=== PATIENT | female | born 1960 | race Caucasian/White ===

== ENCOUNTER → 2025-01-14 | Outpatient (CLI) | payer MEDICARE, MEDICAID, SELFPAY | END | disposition home or self-care (01) | PROVIDERS: PCP Physician Assistant; Referring Provider Physician Assistant; Visit Provider Physician Assistant | DX: Z53.8 Procedure and treatment not carried out for other reasons (principal) ==

== ENCOUNTER 2025-08-22 07:13 | Inpatient (IN) | payer MEDICARE, MEDICAID, SELFPAY ==
[2025-08-22] VITALS (16 sets, daily range): BP systolic 91–128; BP diastolic 56–88; PULSE 93–136; RESP 15–96; TEMP 36.6–39.3; O2SAT 90–100; BMI 25.7
--- NOTE | 2025-08-22 07:19 | EKG_ITS ---
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
--- NOTE | 2025-08-22 07:22 | XR_ITS ---
EXAMINATION: AP chest single view TECHNIQUE: AP portable upright chest single view Date and time: August 22, 2025, 0805 hours INDICATIONS: Chest pain sepsis protocol today. FINDINGS: Mild prominence left ventricle No lobar pneumonia Prominent osteopenia No pulmonary edema IMPRESSION: No lobar pneumonia
--- NOTE | 2025-08-22 07:31 | PD.EDABDPN ---
ED Abdominal Pain RME/HPI General Chief Complaint: Abdominal Pain Stated complaint: ABD PAIN, FEVER CHILLS Time seen by provider: 08/22/25 07:18 Arrival date/time: 08/22/25 07:13 Source: patient and EMS Mode of arrival: ambulatory Limitations: no limitations RME / HPI Severity scale (1-10): 5 Quality: fullness Radiation: none Migration to: no migration Relieving factors: nothing RME / HPI narrative: DR. QUARLES MAIN ED EVALUATION: 65-year-old female presents with a 4 day history of abdominal pain, chills, fever, sweating, nausea, and vomiting. She reports no diarrhea. Abdominal pain is epigastric in location. She has a history of UTI and ankylosing spondylitis and receives monthly immunosuppression treatment for her ankylosing spondylitis. She also reports burning with urination and a mild cough. No shortness of breath and no chest pain. Related Data Previous Rx's ?Medication ?Instructions ?Recorded Acetaminophen ER * (TYLENOL ER *) 650 mg PO Q8HR PRN PAIN ##30 08/05/17 ibuprofen 600 mg tablet 600 mg PO Q6HR PRN PAIN #30 tabs 08/05/17 Allergies Allergy/AdvReac Type Severity Reaction Status Date / Time tetracycline Allergy Mild ITCHY,HIVES Verified 08/22/25 07:28 Review of Systems Review of Systems Systems Reviewed: All systems reviewed, normal except as documented Past Medical History Past Medical History CARDIAC: Positive Hypertension GASTROINTESTINAL: Positive Gastroesophageal Reflux Disease ENDOCRINE: Positive Hyperthyroidism Social History SMOKING STATUS: Former smoker SUBSTANCE USE: does not use Past Medical History Comments PMH COMMENT: Ankylosing spondylitis Hypertension Recurrent UTI ED Exam General Limitations: Present no limitations General appearance: Present alert and in no apparent distress Head Head exam: Present atraumatic, normocephalic and normal inspection Eye Eye exam: Present normal appearance, PERRL and EOMI ENT ENT exam: Present normal exam, normal oropharynx and mucous membranes moist Neck Neck exam: Present normal inspection, full ROM and trachea midline Chest Chest inspection: Present normal inspection and symmetric chest wall rise Respiratory Respiratory exam: Present normal lung sounds bilaterally Cardiovascular Cardiovascular exam: Present regular rate, normal rhythm and normal heart sounds Abdominal Exam Abdominal exam: Present soft and normal bowel sounds Extremities Exam Extremities exam: Present normal inspection and full ROM Back Exam Back exam: Present normal inspection and full ROM Neurological Exam Neurological exam: Present alert, oriented X3 and CN II-XII intact Psychiatric Psychiatric exam: Present normal affect and normal mood Skin Skin exam: Present warm, dry, intact and normal color Course Quality Measures none Orders Category Date Time Status Admit to Inpatient Status Routine Admission 08/22/25 14:32 Active Patient Condition Routine Admission 08/22/25 14:32 Ordered Poultry Debeaker STAT Care 08/22/25 07:19 Active Continuous Pulse Oximetry STAT Care 08/22/25 07:19 Completed EKG (ED ONLY) *Do not use* NOW Care 08/22/25 07:19 Completed In and Out Catheter X1PRN Care 08/22/25 07:19 Completed Insert IV NOW Care 08/22/25 07:19 Active NPO STAT Care 08/22/25 07:19 Active Notify provider NEEDED Care 08/22/25 14:32 Active Strict Intake and Output Routine Care 08/22/25 07:19 Ordered Diet Regular Diet 08/22/[address] abdomen pelvis wo con Stat Exams 08/22/25 13:18 Completed EKG (ED Only) Stat Exams 08/22/25 07:19 Draft XR chest 1V SEPSIS PROTOCOL Stat Exams 08/22/25 07:22 Completed Arterial Blood Gas Stat Lab 08/22/25 07:15 Completed B-Type Natriuretic Peptide Stat Lab 08/22/25 07:23 Completed Blood Culture (Lab) Stat Lab 08/22/25 07:41 Received CBC AM DRAW Lab 08/23/25 05:00 Ordered CBC AM DRAW Lab 08/24/25 05:00 Ordered CBC AM DRAW Lab 08/25/25 05:00 Ordered CBC AM DRAW Lab 08/26/25 05:00 Ordered CBC AM DRAW Lab 08/27/25 05:00 Ordered CBC Stat Lab 08/22/25 09:08 Completed Comprehensive Metabolic Panel AM DRAW Lab 08/23/25 05:00 Ordered Comprehensive Metabolic Panel AM DRAW Lab 08/24/25 05:00 Ordered Comprehensive Metabolic Panel AM DRAW Lab 08/25/25 05:00 Ordered Comprehensive Metabolic Panel AM DRAW Lab 08/26/25 05:00 Ordered Comprehensive Metabolic Panel AM DRAW Lab 08/27/25 05:00 Ordered Comprehensive Metabolic Panel Stat Lab 08/22/25 07:31 Completed LDH (Lactate Dehydrogenase) Stat Lab 08/22/25 07:31 Completed Lactate (Lactic Acid) Stat Lab 08/22/25 09:08 Completed Lactic Acid, 3 HR Stat Lab 08/22/25 12:33 Completed Lipase Stat Lab 08/22/25 07:31 Completed Lipid Panel AM DRAW Lab 08/23/25 05:00 Ordered Magnesium AM DRAW Lab 08/23/25 05:00 Ordered Magnesium Stat Lab 08/22/25 07:31 Completed Partial Thromboplastin Time Stat Lab 08/22/25 07:31 Completed Phosphorous Stat Lab 08/22/25 07:31 Completed Procalcitonin Stat Lab 08/22/25 07:31 Completed Prothrombin Time with INR Stat Lab 08/22/25 07:31 Completed Thyroid Stimulating Hormone AM DRAW Lab 08/23/25 05:00 Ordered Troponin I Stat Lab 08/22/25 07:31 Completed Urinalysis, C/S if Indicated Stat Lab 08/22/25 07:31 Completed Urine Culture Stat Lab 08/22/25 07:31 Received Acetaminophen Lyn [Tylenol Lyn] Med 08/22/25 07:18 Active 1,000 mg PO Q8H PRN Acetaminophen Tab [Tylenol Tab] Med 08/22/25 14:31 Discontinued 650 mg PO Q6H PRN Heparin Inj Med 08/22/25 22:00 Active 5,000 unit SC Q8HR Ondansetron Inj [Zofran Inj] Med 08/22/25 07:18 Active 4 mg IVP Q6HR PRN Sodium Chloride 0.9% 1000 ml [Ns] 1,000 ml Med 08/22/25 10:34 Discontinued IV 999 mls/hr Sodium Chloride 0.9% 1000 ml [Ns] 1,435 ml Med 08/22/25 07:18 Discontinued IV 1,435 mls/hr cefTRIAXone [Rocephin] 1,000 mg Med 08/22/25 07:18 Discontinued SODIUM CHLORIDE 0.9% (Popper) [Ns 0.9% (P)] 50 ml IV X1 Code Status Routine Oth 08/22/25 14:31 Ordered Oxygen Delivery NOW RT 08/22/25 07:19 Active Vital Signs Vital signs: Vital Signs Temperature 102.7 F H 08/22/25 07:20 Pulse Rate 132 H 08/22/25 07:20 Respiratory Rate 19 08/22/25 07:20 Blood Pressure 108/56 L 08/22/25 07:20 Pulse Oximetry (%) 94 L 08/22/25 07:20 Oxygen Delivery Method Room Air 08/22/25 07:20 Abdominal Pain [facility] Narrative MDM Narrative:: I, Imelda Mcleod, am scribing for and in the presence of Dr. Quarles. 65-year-old female with fever, chills, nausea, vomiting, abdominal pain, and urinary burning with history of immunosuppression. Exam normal. Impression is fever, sepsis, and UTI. Patient was given IV fluid Septic workup was done IV Rocephin was given Assume to diagnosis a UTI X-ray chest ordered UA was sent out Blood cultures were taken Labs, EKG, and chest X ray were normal. Urinalysis was positive for UTI. 1217: Blood pressure is better. Will admit the patient to the hospitalist services for UTI, sepsis, and dehydration. Patient data External records reviewed:: [facility] previous records Clinical information provided by:: patient Social determinants that could affect healthcare access:: none Patient has the following chronic illnesses:: Hypertension, GERD, and hyperthyroidism. How is presenting disease/condition affected by chronic disease/condition?: uneffected by Evaluation data The following diagnostics were reviewed and interpreted by me:: lab results, radiology exam(s) and EKG tracing(s) (EKG#1: EKG at 0801 hours. Interpreted by me: sinus tachycardia, rate 114, no axis deviation, no ischemia, normal intervals ) Lab and/or radiology exams considered but not ordered:: none Interpretation Summary: See MDM narrative above. RADIOLOGY Procedure(s): XR chest 1V SEPSIS PROTOCOL Accession Number(s): [id number] cc: Kasey Flores MD; Georges Latif MD; NO PRIMARY/FAMILY,PHYSICIAN~ EXAMINATION: AP chest single view TECHNIQUE: AP portable upright chest single view Date and time: August 22, 2025, 0805 hours INDICATIONS: Chest pain sepsis protocol today. FINDINGS: Mild prominence left ventricle No lobar pneumonia Prominent osteopenia No pulmonary edema IMPRESSION: No lobar pneumonia Dictated By: Georges Latif MD Procedure(s): CT abdomen pelvis wo [facility] Accession Number(s): [id number] cc: Kasey Flores MD; Georges Latif MD; Erica Pruitt PA-C~ Examination: CT abdomen and pelvis without contrast. Coronal 3-D reconstructions. Sagittal 2-D reconstructions. Date and time of exam: August 22, 2025, 1530 hours INDICATIONS: Flank pain fever urinary tract infections 1 week CTDI: vol (mGy): 7.46 DLP: (mGycm): 354 Technique: Axial images of the abdomen have been obtained, 3 mm slice thickness Intravenous contrast material has not been administered. Low dose protocols were performed. One or more of the following dose reduction techniques were used; automated exposure control, adjustment of the mA and/or KV according to patient size, use of iterative reconstruction technique. Findings: Trace pericardial thickening Fatty infiltration throughout the liver No extrahepatic biliary tract dilatation Spleen is not enlarged Moderate renal scarring, no hydronephrosis Multiple fluid distended small bowel loops Colonic diverticulosis, no diverticulitis No bladder mass or bladder calculi Prominent osteopenia IMPRESSION: Moderate renal scarring, no hydronephrosis Multiple fluid distended small bowel loops, differential would include enteritis, early small bowel obstruction As clinically warranted, consider Gastrografin small bowel series follow-up Dictated By: Georges Latif MD Medications / Prescriptions Medications or Prescriptions considered but not ordered:: none Medication administrations:: Medication Administration History Acetaminophen (Acetaminophen Lyn 325 Mg/10 Ml Udc) 1,000 mg PO Q8H PRN PRN Reason: Fever > 100.4 Stop: 09/21/25 07:17 Last Admin: 08/22/25 07:46 Dose: 1,000 mg Documented By: LIGIA Hydrocodone Bitart/Acetaminophen (Hydrocodone/Apap 10/325 Tab) 1 tab PO Q8HR PRN PRN Reason: Pain 4-10 Stop: 08/27/25 17:20 Cyclobenzaprine HCl (Cyclobenzaprine 5 Mg Tablet) 5 mg PO TID [facility] Stop: 09/21/25 21:59 Gabapentin (Gabapentin 100 Mg Capsule) 100 mg PO TID [facility] Stop: 09/21/25 21:59 Heparin Sodium (Porcine) (Heparin Sod Inj 5000 Unit/Ml Vial) 5,000 unit SC Q8HR [facility] Stop: 09/05/25 21:59 Ceftriaxone Sodium/Dextrose (Rocephin/D5w 1gm Iv Premix) 1 gm in 50 mls @ 100 mls/hr IV QDAY [facility] Stop: 08/30/25 08:59 Sodium Chloride (Ns) 1,000 mls @ 70 mls/hr IV .[id number] ONE Stop: 08/23/25 07:41 Levothyroxine Sodium (Levothyroxine Sodium 25 Mcg Tablet) 75 mcg PO ACBR [facility] Stop: 09/22/25 05:59 Ondansetron HCl (Ondansetron Inj 2 Mg/Ml Inj 2 Ml) 4 mg IVP Q6HR PRN PRN Reason: NAUSEA OR VOMITING Stop: 09/21/25 07:17 Last Admin: 08/22/25 07:46 Dose: 4 mg Documented By: LIGIA Sennosides (Senna/Docusate Sod 1 Tab Tablet) 1 tab PO QDAY [facility]; Protocol Stop: 09/22/25 08:59 Discontinued Medications Acetaminophen (Acetaminophen 325 Mg Tablet) 650 mg PO Q6H PRN PRN Reason: Fever >100.4 Stop: 09/21/25 14:30 Sodium Chloride (Ns) 1,435 mls @ 1,435 mls/hr 30 ml/kg infuse over 60 min (1435 ml) IV .Q1H ONE Stop: 08/22/25 08:17 Last Infusion: 08/22/25 08:47 Dose: Infused Documented By: Admin: 08/22/25 07:47 Dose: 1,435 mls/hr Documented By: LIGIA Ceftriaxone Sodium 1,000 mg/ (Sodium Chloride) 50 mls @ 100 mls/hr IV X1 ONE Stop: 08/22/25 07:47 Last Infusion: 08/22/25 08:16 Dose: Infused Documented By: Admin: 08/22/25 07:46 Dose: 100 mls/hr Documented By: LIGIA Sodium Chloride (Ns) 1,000 mls @ 999 mls/hr IV .Q1H1M ONE Stop: 08/22/25 11:34 Last Infusion: 08/22/25 11:57 Dose: Infused Documented By: Admin: 08/22/25 10:56 Dose: 999 mls/hr Documented By: LIGIA see above Consultations Consultation(s) initiated? (list below): Yes Consultation #1 (Physician, Specialty, Details): Discussed test HPI, PMHx, lab, radiology results and/or management with resident working with the hospitalist. Will admit for further evaluation and management. Accepts patient for admission. Time: 17:07 Diagnosis Differential diagnosis abdominal pain: other (fever, sepsis, and UTI) Most likely diagnosis given after review of the tests above:: UTI Sepsis Dehydration Admission Indicated Admission indicated?: indicated Admission Request Was there a request for admission?: Yes Admission Attestation Admission request attestation: Discussed case with [] from Hospitalist service regarding admission. Discussed patients ED course, exam findings, labs, and radiology results. The Hospitalist [agrees,declines] to accept the patient for admission. Disposition Plan Disposition Plan: Admit Discharge Plan Plan Patient Disposition: Admit Acute Care w/in Hospital Problem List Clinical Impression: Acute UTI, Acute dehydration, UTI (urinary tract infection), Sepsis, Dehydration
[2025-08-22] MEDS: cefTRIAXone 1,000 MG in SODIUM CHLORIDE 0.9% (Popper) 50 ML 100 MG IV (07:46)
[2025-08-22] MEDS: ACETAMINOPHEN SOL 325 MG/10 ML UDC 1000 MG PO ×2 (07:46→20:05)
[2025-08-22] MEDS: ONDANSETRON INJ 2 MG/ML INJ 2 ML 4 MG IVP (07:46)
[2025-08-22 07:58] LABS: Collection Type, Urine Clean Catch
[2025-08-22 08:38] LABS: Alanine Aminotransferase < 7 U/L (10-49); Albumin, Serum 4.6 gm/dL (3.4-4.8); Albumin/Globulin Ratio 1.4 (1.2-2.2); Alkaline Phosphatase 111 U/L (46-116); Anion Gap 14 (7-16); Aspartate Amino Transferase 17 U/L (0-34); BUN/Creatinine Ratio 9 Ratio (12-20); Bilirubin,Total 0.9 mg/dL (0.3-1.2); Blood Urea Nitrogen 11 mg/dL (9-23); Calcium 9.3 mg/dL (8.3-10.6); Calcium (Corrected) 9.3 mg/dL (8.5-10.1); Carbon Dioxide 21.4 mMol/L (20.0-31.0); Chloride 102 mMol/L (98-107); Creatinine (Component) 1.2 mg/dL (0.6-1.3); Estimated Creatinine Clearance 37.3 mL/min (>60); Globulin 3.2 gm/dL (2.3-3.5); Glucose 109 mg/dL (74-106); LDH (Lactate Dehydrogenase) 192 U/L (120-246); Lipase 27 U/L (12-53); Magnesium 1.7 mg/dL (1.6-2.6); Osmolality,Calculated 274 (275-295); Phosphorous 2.7 mg/dL (2.4-5.1); Potassium 3.6 mMol/L (3.4-5.1); Procalcitonin 1.19 ng/ml (0.0-0.49); Sodium 137 mMol/L (136-145); Total Protein 7.8 gm/dL (5.7-8.2); Troponin I 0.041 ng/mL (0.0-0.045); eGFR 50 See Note
[2025-08-22 08:39] LABS: Bacteria,Urine 1+; Bilirubin,Urine Negative (Negative); Blood,Urine 3+ (Negative); Clarity,Urine Turbid (Clear/Hazy); Color,Urine Yellow (Lt Yel-Yel); Glucose, Urine Negative (Negative); Hyaline Casts,Urine < 1 /hpf (0-1); Ketones,Urine Negative (Negative); Leukocyte Esterase,Urine Positive (Negative); Nitrite,Urine Negative (Negative); PH,Urine 5.5 (5.0-7.0); Protein,Urine 1+ (Neg - Trace); RBC,Urine 468 /hpf (0-3); Specific Gravity,Urine 1.012 (1.001-1.035); Squamous Epithelial Cell,Urine 1 /hpf (0-5); Urobilinogen,Urine Negative mg/dL (0.0-1.0); WBC,Urine 216 /hpf (0-5)
[2025-08-22 08:41] LABS: Base Excess -1 (-3-3); HCO3 22 mEq/L (20-26); Inspired Oxygen, FIO2 21 %; O2 Saturation 99 % (91-98); PCO2 31 mmHg (32.0-48.0); PO2 111 mmHg (83-108); pH, Arterial 7.47 (7.35-7.45)
[2025-08-22 08:42] LABS: Allen Test Performed/OK; Puncture Site Right Radial
[2025-08-22 08:42] LABS: B-Type Natriuretic Peptide 49 pg/mL (0-100)
[2025-08-22 08:42] LABS: Culture Indicated,Urine Yes
[2025-08-22 08:55] LABS: INR 1.1 (0.9-1.3); Partial Thromboplastin Time 27.7 Seconds (22.0-36.0); Prothrombin Time 11.4 Seconds (9.0-12.2)
[2025-08-22 09:24] LABS: Lactate (Lactic Acid) 2.8 mMol/L (0.4-2.0)
[2025-08-22 09:36] LABS: Basophils # (Auto) 0.1 Thou/mm3 (0.0-0.2); Basophils % (Auto) 0 % (0-2.5); Eosinophils # (Auto) 0.1 Thou/mm3 (0.0-0.5); Eosinophils % (Auto) 1 % (0-10); Hematocrit 36.7 % (36.0-46.0); Hemoglobin 12.0 g/dL (12.0-16.0); Immature Granulocytes Auto 0.08 Thou/mm3 (0.00-0.00); Lymphocytes # (Auto) 0.8 Thou/mm3 (1.0-4.8); Lymphocytes % (Auto) 7 % (10-50); Mean Corpuscular HGB Conc 32.7 g/dl (31.0-37.0); Mean Corpuscular Hemoglobin 27.6 pg (25.0-35.0); Mean Corpuscular Volume 84 fL (80-100); Monocytes # (Auto) 0.5 Thou/mm3 (0.0-0.8); Monocytes % (Auto) 4 % (0-12); Neutrophils # (Auto) 11.4 Thou/mm3 (1.8-7.7); Neutrophils % (Auto) 88 % (37-80); Nucleated Red Blood Cell # 0.00 Thou/mm3 (0.00-0.00); Nucleated Red Blood Cell % 0 /100 WBC (0); Platelet Count 214 Thou/mm3 (140-440); RDW Standard Deviation 42.4 fL (36.4-46.3); Red Blood Count 4.35 Miln/mm3 (4.00-5.20); White Blood Count 13.0 Thou/mm3 (3.6-11.0)
[2025-08-22] MEDS: SODIUM CHLORIDE 0.9% 1000 ML 1,000 ML 999 ML IV (10:56)
[2025-08-22 12:19] LABS: Reflex Lactate? Y
[2025-08-22 12:39] LABS: Lactic Acid, 3 HR 1.6 mMol/L (0.4-2.0)
--- NOTE | 2025-08-22 13:18 | XR_ITS ---
Examination: CT abdomen and pelvis without contrast. Coronal 3-D reconstructions. Sagittal 2-D reconstructions. Date and time of exam: August 22, 2025, 1530 hours INDICATIONS: Flank pain fever urinary tract infections 1 week CTDI: vol (mGy): 7.46 DLP: (mGycm): 354 Technique: Axial images of the abdomen have been obtained, 3 mm slice thickness Intravenous contrast material has not been administered. Low dose protocols were performed. One or more of the following dose reduction techniques were used; automated exposure control, adjustment of the mA and/or KV according to patient size, use of iterative reconstruction technique. Findings: Trace pericardial thickening Fatty infiltration throughout the liver No extrahepatic biliary tract dilatation Spleen is not enlarged Moderate renal scarring, no hydronephrosis Multiple fluid distended small bowel loops Colonic diverticulosis, no diverticulitis No bladder mass or bladder calculi Prominent osteopenia IMPRESSION: Moderate renal scarring, no hydronephrosis Multiple fluid distended small bowel loops, differential would include enteritis, early small bowel obstruction As clinically warranted, consider Gastrografin small bowel series follow-up
--- NOTE | 2025-08-22 14:40 | ESHP_ITS ---
<Statement entered by Jono Pierre MD - 08/23/25 14:51> Ms. Parker is a 65-year-old female with past medical history of psoriatic arthritis, ankylosing spondylitis, hypertension, hyperlipidemia, and hypothyroidism presented to the ED complaining of fever, chills and lower abdominal pain with dysuria. Pt also complains of Nausea and vomiting. UA is positive for UTI, pt meets sepsis criteria, she is tachycardic, tachypneic, leukocytosis, lactic acidosis with end organ damage of CARMEN. Pt is admitted for sepsis 2/2 UTI, UC and BC pending. Will continue IV antibiotics with rocephin. Patient was seen and examined by me personally. I have directly supervised and reviewed documentation by the team resident and agree with its findings. ------- Plan of care was discussed with the attending, Dr. Marisel Pierre, PGY-2 Documentation for date of: 08/22/25 HPI History of Present Illness History of present illness: HPI: 65-year-old female with past medical history of psoriatic arthritis, ankylosing spondylitis hypertension, hyperlipidemia, and hypothyroidism who presented to the ED on 08/22/2025 with a 4-day history of dysuria, fever, and chills. Patient describes dysuria and associated incontinence. She also endorsed a fever and an episode of vomiting the day of presentation. She was found to have a UTI on urinalysis as well as a leukocytosis and a temperature of 102.7 on arrival with a lactic acid of 2.8. Patient was admitted for sepsis secondary to UTI. ED Course: * Significant vitals: BP 108/56, pulse 132, temp 102.7 ?F, saturating 94% on room air. * Significant labs: WBC 13. ABG showed pH 7.47, pCO2 31, PaO2 111. Lactic acid was 2.8. * Imaging: Chest x-ray showed no pneumonia. EKG showed sinus tachycardia. CT abdomen pelvis showed moderate renal scarring, no hydronephrosis, multiple fluid distended small bowel loops. * Urinalysis showed 468 RBCs, 216 WBCs 1+ bacteria. * ED Intervention: Patient was given 1 g of acetaminophen for her fever. Patient was given 1 g of ceftriaxone. Patient was also given 2.4 L of IV fluids. History: * Past medical history: As above, patient mentions that distant history of cervical cancer. * Surgical history: Appendectomy 1973, cholecystectomy in 1983 * Social history: [id number] smoking history, quit 27 years ago. Lives with and grandson. * Family history: Sister had brain cancer and bladder cancer. Home medications: * Tremfya twice a year, Wegovy, [place], Flexeril, meclizine, gabapentin, levothyroxine 75 mcg, Linzess, as Meprazole, amlodipine 5, Otezla Allergies: * Tetracyclines Code Status: * DNI, Resuscitation okay Review of Systems Review of Systems Narrative Review of Systems: Review of Systems: * General: Admits to fevers, chills. * HEENT: Denies headache, congestion, or sore throat. * Cardiac: Denies chest pain or palpitations. * Pulmonary: Denies shortness of breath or cough. * GI: Admits to vomiting. Denies diarrhea, constipation, melena, or hematochezia. * : 4-day history of dysuria, incontinence, difficulty initiating urination. * MSK: Denies pain in the extremities, joints, or myalgias. * Neuro: Denies weakness, numbness, vision changes, or speech difficulty. Exam Vital Signs Temp Pulse Resp BP Pulse Ox O2 Del Method 97.8 F 94 19 96/66 100 Room Air 08/22/25 13:47 08/22/25 13:47 08/22/25 13:47 08/22/25 13:47 08/22/25 13:47 08/22/25 13:47 Narrative Exam General: Awake and in no acute distress. Conversational and non-toxic appearing. Neurologic: GCS 15. Alert and oriented x3, no gross neurological deficit, and patient able to move all 4 extremities. HEENT: Normocephalic, atraumatic, mucous membranes moist. Pupils reactive to light. Heart: Regular rate and rhythm, normal S1 and S2, no murmurs. Lungs: Clear to auscultation bilaterally with no wheezing or crackles. Abdomen: Distended, diffuse tenderness. No guarding or rebound tenderness. Extremities: No edema. 2+ radial and dorsalis pedis pulses bilaterally. Skin: Warm. Dry. No rash or ecchymoses. Results: Labs 08/23/25 05:39 08/23/25 05:39 Labs: Short CBC 08/22/25 Range/Units 09:08 WBC 13.0 H (3.6-11.0) Thou/mm3 Hgb 12.0 (12.0-16.0) g/dL Hct 36.7 (36.0-46.0) % Plt Count 214 (140-440) Thou/mm3 BMP 08/22/25 07:31 Sodium 137 Potassium 3.6 Chloride 102 Carbon Dioxide 21.4 BUN 11 Creatinine 1.2 Glucose 109 H Calcium 9.3 Cardiac Enzymes 08/22/25 Range/Units 07:31 Troponin I 0.041 (0.0-0.045) ng/mL Liver Function 08/22/25 Range/Units 07:31 Total Bilirubin 0.9 (0.3-1.2) mg/dL AST 17 (0-34) U/L ALT < 7 L (10-49) U/L Alkaline Phosphatase 111 (46-116) U/L Albumin 4.6 (3.4-4.8) gm/dL Urine 08/22/25 Range/Units 07:31 Urine Color Yellow (Lt Yel-Yel) Urine Clarity Turbid A (Clear/Hazy) Urine pH 5.5 (5.0-7.0) Ur Specific [place] 1.012 (1.001-1.035) Urine Protein 1+ A (Neg - Trace) Urine Glucose (UA) Negative (Negative) ABG Interpretation ABG results: 08/22/25 07:15 ABG pH 7.47 H ABG pCO2 31 L ABG pO2 111 H ABG HCO3 22 ABG O2 Saturation 99 H ABG Base Excess -1 Quality Measures Quality Measures none Advance care planning discussed with:: patient Medications Home Medications and Allergies Home Medications ?Medication ?Instructions ?Recorded ?Confirmed ?Type albuterol sulfate 90 mcg/actuation 2 puff inhalation T ID PRN 08/22/25 08/22/25 History aerosol inhaler shortness of breath or wheez ing amlodipine 5 mg tablet 5 mg PO DAILY 08/22/2508/22 History apremilast 30 mg tablet (Otezla) 30 mg PO DAILY 08/22/25 History cyclobenzaprine 5 mg tablet 5 mg PO TID PRN muscle spa sm 08/22/25 08/22/25 History fluticasone propionate 44 2 inh inhalation BID PRN shayla rtness 08/22/25 08/22/25 History mcg/actuation HFA aerosol inhaler of breath or wheezin g guselkumab 100 mg/mL subcutaneous 100 mg subcut .Q4 we eks 08/22/25 08/22/25 History syringe (Tremfya) hydrocodone 10 mg-acetaminophen 1 tab PO TID PRN pain 08/22/25 08/22/25 History 325 mg tablet levothyroxine 75 mcg tablet 75 mcg PO DAILY 08/22/25 1 10/22/24 History lidocaine 5 % topical patch 1 patch topical Q24H PRN p ain 08/22/25 08/22/25 History (scale score 7-10) linaclotide 145 mcg capsule 145 mcg PO DAILY 08/22/25 08/22/25 History (Linzess) meclizine 25 mg tablet 25 mg PO [id number] PRN dizzine ss 08/22/25 08/22/25 History omeprazole 40 mg capsule,delayed 40 mg PO DAILY 08/22/25 History release ondansetron HCl 4 mg tablet 4 mg PO [id number] PRN nausea and 08/22/25 08/22/25 History vomiting semaglutide (weight loss) 1.7 1.7 mg subcut Q7D 08/22/25 History mg/0.75 mL subcutaneous pen injector (Weteodoro) Allergies Allergy/AdvReac Type Severity Reaction Status Date / Time tetracycline Allergy Mild ITCHY,HIVES Verified 08/22/25 07:28 Visit Medications Acetaminophen (Acetaminophen Lyn 325 Mg/10 Ml Udc) 1,000 mg PO Q8H PRN PRN Reason: Fever > 100.4 Stop: 09/21/25 07:17 Last Admin: 08/22/25 07:46 Dose: 1,000 mg Heparin Sodium (Porcine) (Heparin Sod Inj 5000 Unit/Ml Vial) 5,000 unit SC Q8HR ALEJANDRA Stop: 09/05/25 21:59 Ondansetron HCl (Ondansetron Inj 2 Mg/Ml Inj 2 Ml) 4 mg IVP Q6HR PRN PRN Reason: NAUSEA OR VOMITING Stop: 09/21/25 07:17 Last Admin: 08/22/25 07:46 Dose: 4 mg Discontinued Medications Acetaminophen (Acetaminophen 325 Mg Tablet) 650 mg PO Q6H PRN PRN Reason: Fever >100.4 Stop: 09/21/25 14:30 Sodium Chloride (Ns) 1,435 mls @ 1,435 mls/hr 30 ml/kg infuse over 60 min (1435 ml) IV .Q1H ONE Stop: 08/22/25 08:17 Last Infusion: 08/22/25 08:47 Dose: Infused Ceftriaxone Sodium 1,000 mg/ (Sodium Chloride) 50 mls @ 100 mls/hr IV X1 ONE Stop: 08/22/25 07:47 Last Infusion: 08/22/25 08:16 Dose: Infused Sodium Chloride (Ns) 1,000 mls @ 999 mls/hr IV .Q1H1M ONE Stop: 08/22/25 11:34 Last Infusion: 08/22/25 11:57 Dose: Infused Assessment & Plan Plan Summary: 65-year-old female with past medical history of psoriatic arthritis, ankylosing spondylitis hypertension, hyperlipidemia, and hypothyroidism who presented to the ED on 08/22/2025 with a 4-day history of dysuria, fever, and chills. She was found to have a UTI on urinalysis as well as a leukocytosis and a temperature of 102.7 on arrival with a lactic acid of 2.8. Patient was admitted for sepsis secondary to UTI. #Sepsis Secondary To #UTI #CARMEN #Lactic acidosis (Resolved) * Sofa score 1 due to a creatinine of 1.2 * News national early warning score of 6 * On arrival, Pulse 132, temp 102.7 ?F, saturating 94% on room air, WBC 13, and Lactic acid was 2.8 which resolved to 1.6 * Evidence of end organ damage may be indicated by a creatinine of 1.2, because the patient's baseline creatinine is not known, may reflect an CARMEN * CT abdomen pelvis showed moderate renal scarring, no hydronephrosis, multiple fluid distended small bowel loops. * Urinalysis showed 468 RBCs, 216 WBCs 1+ bacteria. * Patient received 2.4 L of fluid in the ED * Patient no longer febrile, no longer tachycardic, and saturating 97% on room air Plan: * Blood culture pending * Urine culture pending * Ceftriaxone 1 g IV daily #Hypothyroidism * Per patient history Plan: * Restarted home levothyroxine 75 mcg * TSH ordered #Psoriatic arthritis #Ankylosing spondylitis * Patient is on Tremfya twice a year * Patient is also on Otezla Plan: * Resumed home gabapentin 100 mg p.o. 3 times daily * Resumed home [place] 10 every 8 hours as needed * Resumed home Flexeril 5 mg p.o. 3 times daily #History of cervical cancer * Patient mentioned that she has a history of cervical cancer * Patient has a significant family history of bladder cancer and brain cancer in her sister Plan: * No direct intervention at this time Hospital Maintenance: DVT ppx: Heparin 5000 units subcu every 8 hours Diet: Pending swallow screen, cardiac diet IV lines: Peripheral IVs Code status: DNI, resuscitation okay Dispo: Telemetry monitoring floor, admitted for sepsis secondary to UTI, lactic acidosis resolved, urine and blood cultures pending, started ceftriaxone 1 g daily. Patient was seen and discussed with my attending physician Dr. Marisel HINES and my senior resident Dr. Ignacio HINES PGY-2. Blake Vilchis DO PGY-1. Attending Provider Attestation/Addendum I have seen and examined the patient. I was physically present for the jenkins portions of the services provided including history, physical exam, diagnosis, treatment plans and orders. I agree with assessment and plan of care as documented by residents. After examination of the patient and review of the clinical data I feel that this patient needs admission to the hospital for further treatment/evaluation. Even though this this note was carefully revised there may still be minor errors in chiropractor assistant due to voice recognition software. Tyrone Joiner MD
--- NOTE | 2025-08-22 17:45 | PC.NURSE ---
REPORT CALLED TO CAMERON ALBARRAN. NO FURTHER QUESTIONS. PATIENT BEING ADMITTED
[2025-08-22] MEDS: SODIUM CHLORIDE 0.9% 1000 ML 1,000 ML 70 ML IV (21:10)
[2025-08-22] MEDS: HEPARIN SOD INJ 5000 UNIT/ML VIAL SC (21:11)
[2025-08-22] MEDS: MELATONIN 3 MG TABLET 6 MG PO (22:57)
[2025-08-23] VITALS (12 sets, daily range): BP systolic 96–129; BP diastolic 65–86; PULSE 99–118; RESP 16–98; TEMP 36.7–39.8; O2SAT 92–95; BMI 28.8
[2025-08-23] MEDS: LEVOTHYROXINE SODIUM 25 MCG TABLET 75 MCG PO (05:17)
[2025-08-23] MEDS: MECLIZINE HCL 25 MG TABLET PO (05:18)
[2025-08-23] MEDS: HEPARIN SOD INJ 5000 UNIT/ML VIAL SC ×2 (05:18→14:58)
[2025-08-23 06:09] LABS: Basophils # (Auto) 0.1 Thou/mm3 (0.0-0.2); Basophils % (Auto) 1 % (0-2.5); Eosinophils # (Auto) 0.0 Thou/mm3 (0.0-0.5); Eosinophils % (Auto) 0 % (0-10); Hematocrit 33.3 % (36.0-46.0); Hemoglobin 10.9 g/dL (12.0-16.0); Immature Granulocytes Auto 0.07 Thou/mm3 (0.00-0.00); Lymphocytes # (Auto) 1.1 Thou/mm3 (1.0-4.8); Lymphocytes % (Auto) 9 % (10-50); Mean Corpuscular HGB Conc 32.7 g/dl (31.0-37.0); Mean Corpuscular Hemoglobin 27.5 pg (25.0-35.0); Mean Corpuscular Volume 84 fL (80-100); Monocytes # (Auto) 0.9 Thou/mm3 (0.0-0.8); Monocytes % (Auto) 7 % (0-12); Neutrophils # (Auto) 10.0 Thou/mm3 (1.8-7.7); Neutrophils % (Auto) 82 % (37-80); Nucleated Red Blood Cell # 0.00 Thou/mm3 (0.00-0.00); Nucleated Red Blood Cell % 0 /100 WBC (0); Platelet Count 147 Thou/mm3 (140-440); RDW Standard Deviation 43.0 fL (36.4-46.3); Red Blood Count 3.96 Miln/mm3 (4.00-5.20); White Blood Count 12.1 Thou/mm3 (3.6-11.0)
[2025-08-23 06:40] LABS: Alanine Aminotransferase < 7 U/L (10-49); Albumin, Serum 3.5 gm/dL (3.4-4.8); Albumin/Globulin Ratio 1.4 (1.2-2.2); Alkaline Phosphatase 79 U/L (46-116); Anion Gap 9 (7-16); Aspartate Amino Transferase 19 U/L (0-34); BUN/Creatinine Ratio 10 Ratio (12-20); Bilirubin,Total 0.4 mg/dL (0.3-1.2); Blood Urea Nitrogen 9 mg/dL (9-23); Calcium 8.2 mg/dL (8.3-10.6); Calcium (Corrected) 8.6 mg/dL (8.5-10.1); Carbon Dioxide 23.1 mMol/L (20.0-31.0); Cardiac Risk Estimate 3.0 RATIO (3.7-5.6); Chloride 106 mMol/L (98-107); Cholesterol 105 mg/dL (132-200); Creatinine (Component) 0.9 mg/dL (0.6-1.3); Estimated Creatinine Clearance 52.5 mL/min (>60); Globulin 2.5 gm/dL (2.3-3.5); Glucose 116 mg/dL (74-106); HDL Cholesterol 35 mg/dL (40-60); LDL Cholesterol,Calculated 54 mg/dL (0-130); Magnesium 1.8 mg/dL (1.6-2.6); Osmolality,Calculated 275 (275-295); Potassium 3.5 mMol/L (3.4-5.1); Sodium 138 mMol/L (136-145); Thyroid Stimulating Hormone 0.22 uIU/mL (0.55-4.78); Total Protein 6.0 gm/dL (5.7-8.2); Triglycerides 82 mg/dL (30-150); eGFR > 60 See Note
[2025-08-23 08:08] LABS: Free T4 (Free Thyroxine) 1.17 ng/dL (0.89-1.76)
[2025-08-23] MEDS: SENNA/DOCUSATE SOD 1 TAB TABLET PO (09:57)
[2025-08-23] MEDS: cefTRIAXone/D5w 1gm IV premix 1 GM/50 ML BAG IV ×2 (09:57→13:00)
[2025-08-23] MEDS: ACETAMINOPHEN SOL 325 MG/10 ML UDC 1000 MG PO ×2 (10:11→23:51)
--- NOTE | 2025-08-23 14:39 | ESPR_ITS ---
Documentation for date of: 08/23/25 Subjective Subjective Interval history: Pt is maxim t bedside, no complaints. Vitals are stable, pt is saturating on room air, remained afebrile overnight. BC preliminary grew GNR, increased the rocephin to 2gm pending speciation. Urine culture is pending. Pt had a bowel movement, no complaint of dysuria Exam Vital Signs Temp Pulse Resp BP Pulse Ox O2 Del Method O2 Flow Rate 98.4 F 112 H 16 97/66 93 L Room Air 1 08/23/25 12:00 08/23/25 12:00 08/23/25 12:00 08/23/25 12:00 08/23/25 12:00 08/23/25 12:00 08/23/25 04:00 Narrative Exam General: Awake and in no acute distress. Conversational and non-toxic appearing. Neurologic: GCS 15. Alert and oriented x3, no gross neurological deficit, and patient able to move all 4 extremities. HEENT: Normocephalic, atraumatic, mucous membranes moist. Pupils reactive to light. Heart: Regular rate and rhythm, normal S1 and S2, no murmurs. Lungs: Clear to auscultation bilaterally with no wheezing or crackles. Abdomen: no distension, no tenderness. No guarding or rebound tenderness. Extremities: No edema. 2+ radial and dorsalis pedis pulses bilaterally. Skin: Warm. Dry. No rash or ecchymoses. Objective Labs 08/24/25 05:24 08/24/25 05:24 Labs: Laboratory Results - last 24 hr 08/23/25 08/23/25 05:39 06:40 WBC 12.1 H RBC 3.96 L Hgb 10.9 L Hct 33.3 L MCV 84 MCH 27.5 MCHC 32.7 RDW Std Deviation 43.0 Plt Count 147 D Neut % (Auto) 82 H Lymph % (Auto) 9 L [place] % (Auto) 7 Eos % (Auto) 0 Baso % (Auto) 1 Neut # (Auto) 10.0 H Lymph # (Auto) 1.1 [place] # (Auto) 0.9 H Eos # (Auto) 0.0 Baso # (Auto) 0.1 Immature Gran # (Auto) 0.07 H Absolute Nucleated RBC 0.00 Immature Gran % 1 H Nucleated RBC % 0 Sodium 138 Potassium 3.5 Chloride 106 Carbon Dioxide 23.1 Anion Gap 9 BUN 9 Creatinine 0.9 Estim Creat Clear Calc 52.5 L eGFR > 60 BUN/Creatinine Ratio 10 L Glucose 116 H Calculated Osmolality 275 Calcium 8.2 L Corrected Calcium 8.6 Magnesium 1.8 Total Bilirubin 0.4 D AST 19 ALT < 7 L Alkaline Phosphatase 79 D Total Protein 6.0 Albumin 3.5 D Globulin 2.5 Albumin/Globulin Ratio 1.4 Triglycerides 82 Cholesterol 105 L LDL Cholesterol, Calc 54 HDL Cholesterol 35 L Cholesterol/HDL Ratio 3.0 L TSH 0.22 L Free T4 1.17 ABG Interpretation ABG results: 08/22/25 07:15 ABG pH 7.47 H ABG pCO2 31 L ABG pO2 111 H ABG HCO3 22 ABG O2 Saturation 99 H ABG Base Excess -1 Quality Measures Quality Measures none Advance care planning discussed with:: patient Assessment & Plan Assessment Current Active Medications: Generic Name Dose Route Start Last Admin Trade Name Freq PRN Reason Stop Dose Admin Acetaminophen 1,000 mg 08/22/25 07:18 08/23/25 10:11 Acetaminophen Lyn 325 Mg/10 Ml Udc PO 09/21/25 07:17 1,000 mg Q8H PRN Administration Fever > 100.4 Hydrocodone Bitart/Acetaminophen 1 tab 08/22/25 17:21 08/23/25 02:48 Hydrocodone/Apap 10/325 Tab PO 08/27/25 17:20 1 tab Q8HR PRN Administration Pain 4-10 Cyclobenzaprine HCl 5 mg 08/22/25 22:00 08/23/25 05:17 Cyclobenzaprine 5 Mg Tablet PO 09/21/25 21:59 5 mg TID ALEJANDRA Administration Gabapentin 100 mg 08/22/25 22:00 08/23/25 05:18 Gabapentin 100 Mg Capsule PO 09/21/25 21:59 Not Given TID ALEJANDRA Heparin Sodium (Porcine) 5,000 unit 08/22/25 22:00 08/23/25 05:18 Heparin Sod Inj 5000 Unit/Ml Vial SC 09/05/25 21:59 5,000 unit Q8HR ALEJANDRA Administration Ceftriaxone Sodium 2 gm/ 50 mls @ 100 mls/hr 08/24/25 12:43 Sodium Chloride IV 08/31/25 12:42 QDAY ALEJANDRA Levothyroxine Sodium 75 mcg 08/23/25 06:00 08/23/25 05:17 Levothyroxine Sodium 25 Mcg Tablet PO 09/22/25 05:59 75 mcg ACBR ALEJANDRA Administration Meclizine HCl 25 mg 08/23/25 02:54 08/23/25 05:18 Meclizine Hcl 25 Mg Tablet PO 09/22/25 02:53 25 mg Q6H PRN Administration DIZZINESS Ondansetron HCl 4 mg 08/22/25 07:18 08/22/25 07:46 Ondansetron Inj 2 Mg/Ml Inj 2 Ml IVP 09/21/25 07:17 4 mg Q6HR PRN Administration NAUSEA OR VOMITING Sennosides 1 tab 08/23/25 09:00 08/23/25 09:57 Senna/Docusate Sod 1 Tab Tablet PO 09/22/25 08:59 1 tab QDAY ALEJANDRA Administration Protocol Plan Ms. Parker is a 65-year-old female with past medical history of psoriatic arthritis, ankylosing spondylitis hypertension, hyperlipidemia, and hypothyroidism who presented to the ED on 08/22/2025 with a 4-day history of dysuria, fever, and chills. She was found to have a UTI on urinalysis as well as a leukocytosis and a temperature of 102.7 on arrival with a lactic acid of 2.8. Patient was admitted for sepsis secondary to UTI. #Sepsis Secondary To #UTI #GNR Bacteremia #Acute Kidney Injury- resolved #Lactic acidosis (Resolved) Sofa score 1 due to a creatinine of 1.2 News national early warning score of 6 On arrival, Pulse 132, temp 102.7 ?F, saturating 94% on room air, WBC 13, and Lactic acid was 2.8 which resolved to 1.6 -Evidence of end organ damage may be indicated by a creatinine of 1.2, because the patient's baseline creatinine is not known, may reflect an CARMEN -CT abdomen pelvis showed moderate renal scarring, no hydronephrosis, multiple fluid distended small bowel loops. -Urinalysis showed 468 RBCs, 216 WBCs 1+ bacteria. -Patient received 2.4 L of fluid in the ED -Patient no longer febrile, no longer tachycardic, and saturating 97% on room air Plan: -Blood culture preliminary growing GNR -Urine culture pending -Ceftriaxone 2 g IV daily #Hypothyroidism TSH 0.22, free T41.17 -Resumed home levothyroxine 75 mcg #Psoriatic arthritis #Ankylosing spondylitis Patient is on Tremfya twice a year Patient is also on Otezla Plan: -Resumed home gabapentin 100 mg p.o. 3 times daily -Resumed home [place] 10 every 8 hours as needed -Resumed home Flexeril 5 mg p.o. 3 times daily - Given patient's chronic opioid use, bowel regimen is in place #History of cervical cancer Patient mentioned that she has a history of cervical cancer Patient has a significant family history of bladder cancer and brain cancer in her sister Plan: - Patient will need to follow-up outpatient Hospital Maintenance: DVT ppx: Heparin 5000 units subcu every 8 hours Diet: Pending swallow screen, cardiac diet IV lines: Peripheral IVs Code status: DNI, resuscitation okay Dispo: Telemetry sepsis secondary to UTI, urine pending, blood cultures grew GNR patient is on ceftriaxone 2 g daily. Assessment and plan discussed with my attending physician Dr. Marisel Pierre (PGY-2)- Internal medicine resident Attending Provider Attestation/Addendum I have seen and examined the patient. I was physically present for the jenkins portions of the services provided including history, physical exam, diagnosis, treatment plans and orders. I agree with assessment and plan of care as documented by residents. Even though this this note was carefully revised there may still be minor errors in it assistant due to voice recognition software. Tyrone Joiner MD
--- NOTE | 2025-08-23 17:02 | PC.SS ---
65YO Female, reason for referral: UTI Role and purpose of today's contact was explained. Patient confirmed her demographic information. She stated her spouse Jaylen Neil [phone] is her primary medical surrogate decisionmaker. Patient reported she was independent with ADLs prior to hospitalization and independent with ambulation as well. However, within these last couple of days leading to hospitalization she has relied on her spouse and granddaughter for support with ADLs. Granddaughter Luz Parker is [facility] provider and will be providing 50hrs. of service monthly. Patient reports she is followed by a Rheumotologist in [place] but is unable to provide their name at this time. PHARMACY: [facility]. PCP: Erica Pruitt, appt. set for 08/31/25. Patient reports having last appt. 8 weeks ago. Patient has requested to return home when medically clear. She has declined SNF placement at this time. DISCHARGE PLAN: HOME, spouse Jaylen to transport. ALT. DECSIONMAKER: Spouse Jaylen Neil [phone]
[2025-08-23] MEDS: guaiFENesin/DM TABLET 1 EACH PO (22:30)
[2025-08-24] VITALS (13 sets, daily range): BP systolic 96–121; BP diastolic 64–78; PULSE 83–121; RESP 15–21; TEMP 36.1–39.5; O2SAT 93–100; BMI 28.8
[2025-08-24] MEDS: HEPARIN SOD INJ 5000 UNIT/ML VIAL SC ×3 (05:30→22:04)
[2025-08-24] MEDS: LEVOTHYROXINE SODIUM 25 MCG TABLET 75 MCG PO (05:30)
[2025-08-24 06:52] LABS: Basophils # (Auto) 0.1 Thou/mm3 (0.0-0.2); Basophils % (Auto) 1 % (0-2.5); Eosinophils # (Auto) 0.0 Thou/mm3 (0.0-0.5); Eosinophils % (Auto) 0 % (0-10); Hematocrit 34.8 % (36.0-46.0); Hemoglobin 11.4 g/dL (12.0-16.0); Immature Granulocytes Auto 0.07 Thou/mm3 (0.00-0.00); Lymphocytes # (Auto) 1.4 Thou/mm3 (1.0-4.8); Lymphocytes % (Auto) 15 % (10-50); Mean Corpuscular HGB Conc 32.8 g/dl (31.0-37.0); Mean Corpuscular Hemoglobin 28.0 pg (25.0-35.0); Mean Corpuscular Volume 86 fL (80-100); Monocytes # (Auto) 0.9 Thou/mm3 (0.0-0.8); Monocytes % (Auto) 9 % (0-12); Neutrophils # (Auto) 6.7 Thou/mm3 (1.8-7.7); Neutrophils % (Auto) 74 % (37-80); Nucleated Red Blood Cell # 0.00 Thou/mm3 (0.00-0.00); Nucleated Red Blood Cell % 0 /100 WBC (0); Platelet Count 154 Thou/mm3 (140-440); RDW Standard Deviation 44.2 fL (36.4-46.3); Red Blood Count 4.07 Miln/mm3 (4.00-5.20); White Blood Count 9.1 Thou/mm3 (3.6-11.0)
[2025-08-24 07:01] LABS: Alanine Aminotransferase < 7 U/L (10-49); Albumin, Serum 3.4 gm/dL (3.4-4.8); Albumin/Globulin Ratio 1.3 (1.2-2.2); Alkaline Phosphatase 82 U/L (46-116); Anion Gap 9 (7-16); Aspartate Amino Transferase 21 U/L (0-34); BUN/Creatinine Ratio 7 Ratio (12-20); Bilirubin,Total 0.4 mg/dL (0.3-1.2); Blood Urea Nitrogen 7 mg/dL (9-23); Calcium 8.3 mg/dL (8.3-10.6); Calcium (Corrected) 8.8 mg/dL (8.5-10.1); Carbon Dioxide 24.0 mMol/L (20.0-31.0); Chloride 108 mMol/L (98-107); Creatinine (Component) 1.0 mg/dL (0.6-1.3); Estimated Creatinine Clearance 47.3 mL/min (>60); Globulin 2.7 gm/dL (2.3-3.5); Glucose 103 mg/dL (74-106); Osmolality,Calculated 279 (275-295); Potassium 4.0 mMol/L (3.4-5.1); Sodium 141 mMol/L (136-145); Total Protein 6.1 gm/dL (5.7-8.2); eGFR > 60 See Note
[2025-08-24] MEDS: SENNA/DOCUSATE SOD 1 TAB TABLET PO (09:38)
[2025-08-24] MEDS: PIPER/TAZO 3.375 GM PREMIX 3.375 GM/50 ML BAG IV ×3 (09:39→22:04)
[2025-08-24] MEDS: ACETAMINOPHEN SOL 325 MG/10 ML UDC 1000 MG PO ×2 (09:44→19:25)
--- NOTE | 2025-08-24 09:48 | ESPR_ITS ---
Subjective Subjective Interval history: no po options for bacteremia presumably from urine had zosyn in ed then rocephin but persistent fever noted. zosyn will work but is problematic for home or placement. Exam Vital Signs Temp Pulse Resp BP Pulse Ox O2 Del Method O2 Flow Rate 102.2 F H 89 21 H 112/78 93 L Room Air 1 08/24/25 09:44 08/24/25 07:55 08/24/25 07:55 08/24/25 07:55 08/24/25 07:55 08/24/25 07:55 08/23/25 04:00 Narrative Exam seems sl confused. rest of exam benign. Objective - Internal Medicine Labs 08/24/25 05:24 08/24/25 05:24 Labs: Laboratory Results - last 24 hr 08/24/25 05:24 WBC 9.1 RBC 4.07 Hgb 11.4 L Hct 34.8 L MCV 86 MCH 28.0 MCHC 32.8 RDW Std Deviation 44.2 Plt Count 154 Neut % (Auto) 74 Lymph % (Auto) 15 [place] % (Auto) 9 Eos % (Auto) 0 Baso % (Auto) 1 Neut # (Auto) 6.7 Lymph # (Auto) 1.4 [place] # (Auto) 0.9 H Eos # (Auto) 0.0 Baso # (Auto) 0.1 Immature Gran # (Auto) 0.07 H Absolute Nucleated RBC 0.00 Immature Gran % 1 H Nucleated RBC % 0 Sodium 141 Potassium 4.0 D Chloride 108 H Carbon Dioxide 24.0 Anion Gap 9 BUN 7 L Creatinine 1.0 Estim Creat Clear Calc 47.3 L eGFR > 60 BUN/Creatinine Ratio 7 L Glucose 103 Calculated Osmolality 279 Calcium 8.3 Corrected Calcium 8.8 Total Bilirubin 0.4 AST 21 ALT < 7 L Alkaline Phosphatase 82 Total Protein 6.1 Albumin 3.4 Globulin 2.7 Albumin/Globulin Ratio 1.3 ABG Interpretation ABG results: 08/22/25 07:15 ABG pH 7.47 H ABG pCO2 31 L ABG pO2 111 H ABG HCO3 22 ABG O2 Saturation 99 H ABG Base Excess -1 Assessment & Plan A&P Narrative bacteremia, esbl with r to all effective po regimens other problems as noted. favor iv rx with ertapenem 1 gm iv daily thru 08/31 zosyn ok as inpt. for now, but is problematic if she goes home or to a nh. for rx thru 08/31 grand daughter works with home care so that may be a preferred option for her Time Spent With Patient Time: Total time spent is greater than 50% in coordination of care (as documented) at patient's floor/unit and/or counseling patient:
--- NOTE | 2025-08-24 09:54 | PC.SS ---
rounding note: Patient remains on i.v. antibiotics. They may change the i.v. meds. Patient has UTI.
--- NOTE | 2025-08-24 10:31 | ESCONSULT_ITS ---
<Statement entered by Ward Vasquez MD - 08/26/25 10:13> pt seen with resident. all findings confirmed. see additional notes for details HPI Data of Consult Requesting Physician: Tyrone Joiner MD Admitting Provider: Tyrone Joiner MD Attending Provider: Tyrone Joiner MD Primary Care Provider: Erica Pruitt PA-C Consult Narrative History of present illness: Ms. Parker is a 65-year-old female with past medical history of psoriatic arthritis on guselkumad infusions, ankylosing spondylitis of the neck, hypertension, hyperlipidemia, and hypothyroidism presented to the ED on 08/22/25 complaining of fever, chills and lower abdominal pain with dysuria. Urine analysis obtained at the time of admission was positive for UTI (positive for leukocyte esterase and urine WBC was 216). Pt was started on ceftriaxone on 08/22. Urine culture obtained grew ESBL E. coli with multi drug resistance. Pt continued to have spike in fevers during hospitalization and blood culture also grew ESBL E.coli and pt was started on Zosyn on 08/24. Primary hospitalist team consulted ID for oral options for this pt's multi drug resistance ESBL E.coli UTI and Bacteremia. PMH: As above, patient mentions that distant history of cervical cancer. PSH: Appendectomy 1973, cholecystectomy in 1983 SH: 49-hexn-xmat smoking history, quit 27 years ago. Lives with and grandson. FH: Pt has extensive history positive for multiple cancers in her sisters Allergies: Tetracyclines Home Meds: guselkumad infusions, Wegovy, Farley, Flexeril, meclizine, gabapentin, levothyroxine omeprazole, amlodipine cc:: cc: Tyrone Joiner MD Review of Systems Review of Systems Systems Reviewed: All systems reviewed, normal except as documented Exam Vital Signs Temp Pulse Resp BP Pulse Ox O2 Del Method O2 Flow Rate 102.2 F H 89 21 H 112/78 93 L Room Air 1 08/24/25 09:44 08/24/25 07:55 08/24/25 07:55 08/24/25 07:55 08/24/25 07:55 08/24/25 07:55 08/23/25 04:00 Narrative Exam General: Awake and in no acute distress. Conversational and non-toxic appearing. Neurologic: no gross neurological deficit noted HEENT: Normocephalic, atraumatic, mucous membranes moist. Heart: Regular rate and rhythm, normal S1 and S2, no murmurs. Lungs: Clear to auscultation bilaterally with no wheezing or crackles. Abdomen: no distension, no tenderness. No guarding or rebound tenderness. Extremities: No edema. 2+ radial and dorsalis pedis pulses bilaterally. Skin: Warm. Dry. No rash or ecchymoses. Results Labs 08/26/25 05:45 08/26/25 05:45 Labs: Short CBC 08/24/25 Range/Units 05:24 WBC 9.1 (3.6-11.0) Thou/mm3 Hgb 11.4 L (12.0-16.0) g/dL Hct 34.8 L (36.0-46.0) % Plt Count 154 (140-440) Thou/mm3 BMP 08/24/25 05:24 Sodium 141 Potassium 4.0 D Chloride 108 H Carbon Dioxide 24.0 BUN 7 L Creatinine 1.0 Glucose 103 Calcium 8.3 Liver Function 08/24/25 Range/Units 05:24 Total Bilirubin 0.4 (0.3-1.2) mg/dL AST 21 (0-34) U/L ALT < 7 L (10-49) U/L Alkaline Phosphatase 82 (46-116) U/L Albumin 3.4 (3.4-4.8) gm/dL ABG Interpretation ABG results: 08/22/25 07:15 ABG pH 7.47 H ABG pCO2 31 L ABG pO2 111 H ABG HCO3 22 ABG O2 Saturation 99 H ABG Base Excess -1 Quality Measures Quality Measures none Advance care planning discussed with:: patient and spouse Medications Home Medications and Allergies Home Medications ?Medication ?Instructions ?Recorded ?Confirmed ?Type albuterol sulfate 90 mcg/actuation 2 puff inhalation T ID PRN 08/22/25 08/22/25 History aerosol inhaler shortness of breath or wheez ing amlodipine 5 mg tablet 5 mg PO DAILY 08/22/2508/22 History apremilast 30 mg tablet (Otezla) 30 mg PO DAILY 08/22/25 History cyclobenzaprine 5 mg tablet 5 mg PO TID PRN muscle spa sm 08/22/25 08/22/25 History fluticasone propionate 44 2 inh inhalation BID PRN shayla rtness 08/22/25 08/22/25 History mcg/actuation HFA aerosol inhaler of breath or wheezin g guselkumab 100 mg/mL subcutaneous 100 mg subcut .Q4 we eks 08/22/25 08/22/25 History syringe (Tremfya) Held on 08/26/25. Instructions: Hold until finished course of antibiotics hydrocodone 10 mg-acetaminophen 1 tab PO TID PRN pain 08/22/25 08/22/25 History 325 mg tablet levothyroxine 75 mcg tablet 75 mcg PO DAILY 08/22/25 1 10/22/24 History lidocaine 5 % topical patch 1 patch topical Q24H PRN p ain 08/22/25 08/22/25 History (scale score 7-10) linaclotide 145 mcg capsule 145 mcg PO DAILY 08/22/25 08/22/25 History (Linzess) meclizine 25 mg tablet 25 mg PO [id number] PRN dizzine ss 08/22/25 08/22/25 History omeprazole 40 mg capsule,delayed 40 mg PO DAILY 08/22/25 History release ondansetron HCl 4 mg tablet 4 mg PO [id number] PRN nausea and 08/22/25 08/22/25 History vomiting semaglutide (weight loss) 1.7 1.7 mg subcut Q7D 08/22/25 History mg/0.75 mL subcutaneous pen injector (David) Allergies Allergy/AdvReac Type Severity Reaction Status Date / Time tetracycline Allergy Mild ITCHY,HIVES Verified 08/22/25 07:28 Visit Medications Acetaminophen (Acetaminophen Lyn 325 Mg/10 Ml Udc) 1,000 mg PO Q8H PRN PRN Reason: Fever > 100.4 Stop: 09/21/25 07:17 Last Admin: 08/24/25 09:44 Dose: 1,000 mg Hydrocodone Bitart/Acetaminophen (Hydrocodone/Apap 10/325 Tab) 1 tab PO Q8HR PRN PRN Reason: Pain 4-10 Stop: 08/27/25 17:20 Last Admin: 08/24/25 09:55 Dose: 1 tab Cyclobenzaprine HCl (Cyclobenzaprine 5 Mg Tablet) 5 mg PO TID [facility] Stop: 09/21/25 21:59 Last Admin: 08/24/25 05:30 Dose: 5 mg Gabapentin (Gabapentin 100 Mg Capsule) 100 mg PO TID [facility] Stop: 09/21/25 21:59 Last Admin: 08/24/25 05:30 Dose: Not Given Heparin Sodium (Porcine) (Heparin Sod Inj 5000 Unit/Ml Vial) 5,000 unit SC Q8HR ALEJANDRA Stop: 09/05/25 21:59 Last Admin: 08/24/25 05:30 Dose: 5,000 unit Piperacillin/Tazobactam/Dextrose (Zosyn) 3.375 gm in 50 mls @ 12.5 mls/hr IV Q8HR [facility]; Protocol Stop: 08/31/25 07:51 Levothyroxine Sodium (Levothyroxine Sodium 25 Mcg Tablet) 75 mcg PO ACBR [facility] Stop: 09/22/25 05:59 Last Admin: 08/24/25 05:30 Dose: 75 mcg Meclizine HCl (Meclizine Hcl 25 Mg Tablet) 25 mg PO Q6H PRN PRN Reason: DIZZINESS Stop: 09/22/25 02:53 Last Admin: 08/23/25 05:18 Dose: 25 mg Ondansetron HCl (Ondansetron Inj 2 Mg/Ml Inj 2 Ml) 4 mg IVP Q6HR PRN PRN Reason: NAUSEA OR VOMITING Stop: 09/21/25 07:17 Last Admin: 08/22/25 07:46 Dose: 4 mg Sennosides (Senna/Docusate Sod 1 Tab Tablet) 1 tab PO QDAY [facility]; Protocol Stop: 09/22/25 08:59 Last Admin: 08/24/25 09:38 Dose: 1 tab Sennosides (Sennosides Syrup 8.8 Mg/5 Ml Udc) 8.8 mg PO QDAY PRN; Protocol PRN Reason: CONSTIPATION Stop: 09/23/25 09:54 Discontinued Medications Acetaminophen (Acetaminophen 325 Mg Tablet) 650 mg PO Q6H PRN PRN Reason: Fever >100.4 Stop: 09/21/25 14:30 Guaifenesin/Dextromethorphan (Guaifenesin/Dm Tablet) 1 each PO X1 ONE Stop: 08/23/25 22:15 Last Admin: 08/23/25 22:30 Dose: 1 each Sodium Chloride (Ns) 1,435 mls @ 1,435 mls/hr 30 ml/kg infuse over 60 min (1435 ml) IV .Q1H ONE Stop: 08/22/25 08:17 Last Infusion: 08/22/25 08:47 Dose: Infused Ceftriaxone Sodium 1,000 mg/ (Sodium Chloride) 50 mls @ 100 mls/hr IV X1 ONE Stop: 08/22/25 07:47 Last Infusion: 08/22/25 08:16 Dose: Infused Sodium Chloride (Ns) 1,000 mls @ 999 mls/hr IV .Q1H1M ONE Stop: 08/22/25 11:34 Last Infusion: 08/22/25 11:57 Dose: Infused Ceftriaxone Sodium/Dextrose (Rocephin/D5w 1gm Iv Premix) 1 gm in 50 mls @ 100 mls/hr IV QDAY [facility] Stop: 08/30/25 08:59 Last Admin: 08/23/25 09:57 Dose: 100 mls/hr Sodium Chloride (Ns) 1,000 mls @ 70 mls/hr IV .[id number] ONE Stop: 08/23/25 07:41 Last Admin: 08/22/25 21:10 Dose: 70 mls/hr Ceftriaxone Sodium/Dextrose (Rocephin/D5w 1gm Iv Premix) 1 gm in 50 mls @ 100 mls/hr IV X1 ONE Stop: 08/23/25 13:10 Last Admin: 08/23/25 13:00 Dose: 100 mls/hr Ceftriaxone Sodium 2 gm/ (Sodium Chloride) 50 mls @ 100 mls/hr IV QDAY [facility] Stop: 08/31/25 12:42 Piperacillin/Tazobactam/Dextrose (Zosyn) 3.375 gm in 50 mls @ 100 mls/hr IV X1 ONE; Protocol Stop: 08/24/25 08:29 Last Admin: 08/24/25 09:39 Dose: 100 mls/hr Lorazepam (Lorazepam 0.5 Mg Tablet) 0.5 mg PO X1 ONE Stop: 08/24/25 01:05 Last Admin: 08/24/25 01:11 Dose: 0.5 mg Melatonin (Melatonin 3 Mg Tablet) 6 mg PO X1 ONE Stop: 08/22/25 22:47 Last Admin: 08/22/25 22:57 Dose: 6 mg Pantoprazole Sodium (Pantoprazole Inj 40 Mg Vial) 40 mg IVP X1 ONE Stop: 08/23/25 22:15 Last Admin: 08/23/25 22:30 Dose: 40 mg Assessment & Plan Plan Ms. Parker is a 65-year-old female with past medical history of psoriatic arthritis on guselkumad infusions, ankylosing spondylitis of the neck, hypertension, hyperlipidemia, and hypothyroidism presented to the ED on 08/22/25 complaining of fever, chills and lower abdominal pain with dysuria. Pt is admitted to the hospital for treatment of ESBL E. Coli UTI and ESBL E. Coli Bacteremia. #Sepsis secondary to #Complicated ESBL E.Coli UTI #ESBL E.coli Bacteremia #Lactic acidosis- Resolved #Acute Kidney Injury- Resolved SOFA score 1 due to a creatinine of 1.2. On arrival pulse 132, T 102.7 ?F, saturating 94% on room air, WBC 13, and lactic acid was 2.8 which resolved to 1.6 and end organ damage of CARMEN -08/22 CT abdomen pelvis showed moderate renal scarring, no hydronephrosis, multiple fluid distended small bowel loops. -Urinalysis showed leukocyte esterase +, Pyuria ( 216 WBCs) 1+ bacteria. -Pt continues to have intermittent fevers through 08/25 Plan: - Blood and Urine cultures grew ESBL E. Coli, which has minimal sensitively. No oral options available based on culture sensitivity -Pt received Rocephin 2gm on 08/22, 08/23 -Zosyn 08/24 - can switch to ertapenem if continues to spike fevers while on zosyn - Upon discharge Pt will need to continue with IV antibiotics with Ertapenem through 08/31 #Acute kidney injury, resolved #Hypothyroidism #Psoriatic arthritis #Ankylosing spondylitis #History of cervical cancer -Management as per primary hospitalist team Assessment and plan discussed with my attending physician Dr. Pedro Pierre (PGY-2)- Internal medicine resident
--- NOTE | 2025-08-24 11:44 | ESPR_ITS ---
<Statement entered by Rubén aNsh MD - 08/24/25 13:17> No acute overnight events. Seen and examined at bedside with son present and states that she overall feels better compared to when she was admitted. No longer experiencing dysuria but she was noted to have a fever overnight and again spiked another fever this morning with Tmax of 103.6 ?F. Urine and blood cultures came back positive for ESBL E. coli and antibiotics transitioned to Zosyn. Touch base with infectious disease who states that Zosyn okay to continue for now but transition to ertapenem upon discharge or if patient continues to spike fevers. Given that she was not adequately covered and spiking fevers, will hold off on obtaining additional blood cultures and will only obtain again if fever spike after switching to Zosyn. ----- Note reviewed and agree with care plan as documented. Please refer to the note below for further details. Plan discussed with attending physician Dr. Marisel Nash MD PGY-2 Internal Medicine Documentation for date of: 08/24/25 Subjective Subjective Interval history: Patient this morning was accompanied by son at bedside. Son states patient gets a little delirious seeming when she was febrile overnight and this morning. Patient complains of some back pain which she says is manageable with current meds. Patient's blood cultures came back positive for ESBL ecoli, discontinued ceftriaxone and started zosyn. Infectious disease consulted and says zosyn is okay, but should switch to ertapenem and will repeat blood cultures if fever continues. Patient was tachycardic to 114 but is saturating well on room air this morning. Exam Vital Signs Temp Pulse Resp BP Pulse Ox O2 Del Method O2 Flow Rate 102.2 F H 114 H 21 H 112/78 93 L Room Air 1 08/24/25 09:44 08/24/25 08:00 08/24/25 07:55 08/24/25 07:55 08/24/25 07:55 08/24/25 07:55 08/23/25 04:00 Narrative Exam General: Awake and in no acute distress. Conversational and non-toxic appearing. Neurologic: GCS 15. Alert and oriented x3, no gross neurological deficit, and patient able to move all 4 extremities. HEENT: Normocephalic, atraumatic, mucous membranes moist. Pupils reactive to light. Heart: Regular rate and rhythm, normal S1 and S2, no murmurs. Lungs: Clear to auscultation bilaterally with no wheezing or crackles. Abdomen: Soft, nontender, non-distended. No guarding or rebound tenderness. Extremities: No edema. 2+ radial and dorsalis pedis pulses bilaterally. Skin: Warm. Dry. No rash or ecchymoses. Objective Labs 08/24/25 05:24 08/24/25 05:24 Labs: Laboratory Results - last 24 hr 08/24/25 05:24 WBC 9.1 RBC 4.07 Hgb 11.4 L Hct 34.8 L MCV 86 MCH 28.0 MCHC 32.8 RDW Std Deviation 44.2 Plt Count 154 Neut % (Auto) 74 Lymph % (Auto) 15 [place] % (Auto) 9 Eos % (Auto) 0 Baso % (Auto) 1 Neut # (Auto) 6.7 Lymph # (Auto) 1.4 [place] # (Auto) 0.9 H Eos # (Auto) 0.0 Baso # (Auto) 0.1 Immature Gran # (Auto) 0.07 H Absolute Nucleated RBC 0.00 Immature Gran % 1 H Nucleated RBC % 0 Sodium 141 Potassium 4.0 D Chloride 108 H Carbon Dioxide 24.0 Anion Gap 9 BUN 7 L Creatinine 1.0 Estim Creat Clear Calc 47.3 L eGFR > 60 BUN/Creatinine Ratio 7 L Glucose 103 Calculated Osmolality 279 Calcium 8.3 Corrected Calcium 8.8 Total Bilirubin 0.4 AST 21 ALT < 7 L Alkaline Phosphatase 82 Total Protein 6.1 Albumin 3.4 Globulin 2.7 Albumin/Globulin Ratio 1.3 ABG Interpretation ABG results: 08/22/25 07:15 ABG pH 7.47 H ABG pCO2 31 L ABG pO2 111 H ABG HCO3 22 ABG O2 Saturation 99 H ABG Base Excess -1 Quality Measures Quality Measures VTE prophylaxis Advance care planning discussed with:: patient Assessment & Plan Assessment Current Active Medications: Generic Name Dose Route Start Last Admin Trade Name Freq PRN Reason Stop Dose Admin Acetaminophen 1,000 mg 08/22/25 07:18 08/24/25 09:44 Acetaminophen Lyn 325 Mg/10 Ml Udc PO 09/21/25 07:17 1,000 mg Q8H PRN Administration Fever > 100.4 Hydrocodone Bitart/Acetaminophen 1 tab 08/22/25 17:21 08/24/25 09:55 Hydrocodone/Apap 10/325 Tab PO 08/27/25 17:20 1 tab Q8HR PRN Administration Pain 4-10 Cyclobenzaprine HCl 5 mg 08/22/25 22:00 08/24/25 05:30 Cyclobenzaprine 5 Mg Tablet PO 09/21/25 21:59 5 mg TID ALEJANDRA Administration Gabapentin 100 mg 08/22/25 22:00 08/24/25 05:30 Gabapentin 100 Mg Capsule PO 09/21/25 21:59 Not Given TID ALEJANDRA Heparin Sodium (Porcine) 5,000 unit 08/22/25 22:00 08/24/25 05:30 Heparin Sod Inj 5000 Unit/Ml Vial SC 09/05/25 21:59 5,000 unit Q8HR ALEJANDRA Administration Piperacillin/Tazobactam/Dextrose 3.375 gm in 50 mls @ 12.5 mls/hr 08/24/25 14:00 Zosyn IV 08/31/25 07:51 Q8HR ALEJANDRA Protocol Levothyroxine Sodium 75 mcg 08/23/25 06:00 08/24/25 05:30 Levothyroxine Sodium 25 Mcg Tablet PO 09/22/25 05:59 75 mcg ACBR ALEJANDRA Administration Meclizine HCl 25 mg 08/23/25 02:54 08/23/25 05:18 Meclizine Hcl 25 Mg Tablet PO 09/22/25 02:53 25 mg Q6H PRN Administration DIZZINESS Ondansetron HCl 4 mg 08/22/25 07:18 08/22/25 07:46 Ondansetron Inj 2 Mg/Ml Inj 2 Ml IVP 09/21/25 07:17 4 mg Q6HR PRN Administration NAUSEA OR VOMITING Sennosides 1 tab 08/23/25 09:00 08/24/25 09:38 Senna/Docusate Sod 1 Tab Tablet PO 09/22/25 08:59 1 tab QDAY ALEJANDRA Administration Protocol Sennosides 8.8 mg 08/24/25 09:55 Sennosides Syrup 8.8 Mg/5 Ml Udc PO 09/23/25 09:54 QDAY PRN CONSTIPATION Protocol Plan Ms. Parker is a 65-year-old female with past medical history of psoriatic arthritis, ankylosing spondylitis hypertension, hyperlipidemia, and hypothyroidism who presented to the ED on 08/22/2025 with a 4-day history of dysuria, fever, and chills. She was found to have a UTI on urinalysis as well as a leukocytosis and a temperature of 102.7 on arrival with a lactic acid of 2.8. Patient was admitted for sepsis secondary to UTI. #Sepsis Secondary To #uncomplicated UTI #ESBL E.coli #Acute Kidney Injury- resolved #Lactic acidosis (Resolved) Sofa score 1 due to a creatinine of 1.2 News national early warning score of 6 On arrival, Pulse 132, temp 102.7 ?F, saturating 94% on room air, WBC 13, and Lactic acid was 2.8 which resolved to 1.6 -Evidence of end organ damage may be indicated by a creatinine of 1.2, because the patient's baseline creatinine is not known, may reflect an CARMEN -CT abdomen pelvis showed moderate renal scarring, no hydronephrosis, multiple fluid distended small bowel loops. -Urinalysis showed 468 RBCs, 216 WBCs 1+ bacteria. -Patient received 2.4 L of fluid in the ED -08/24: Patient febrile to 103.6 overnight; tachycardic to 114; saturating well on room air Plan: -Infectious disease consulted -Blood & Urine culture grew ESBL E.coli -DC'd Ceftriaxone; Started Zosyn. If fever persists, will switch to ertapenem per ID, and will repeat blood cultures as well if fever persists. #Hypothyroidism TSH 0.22, free T41.17 -Resumed home levothyroxine 75 mcg #Psoriatic arthritis #Ankylosing spondylitis Patient is on Tremfya twice a year Patient is also on Otezla Plan: - Resumed home gabapentin 100 mg p.o. 3 times daily - Resumed home [place] 10 every 8 hours as needed - Resumed home Flexeril 5 mg p.o. 3 times daily - Given patient's chronic opioid use, bowel regimen is in place #History of cervical cancer Patient mentioned that she has a history of cervical cancer Patient has a significant family history of bladder cancer and brain cancer in her sister Plan: - Patient will need to follow-up outpatient Hospital Maintenance: Disposition: Telemetry (Blood cx grew esbl ecoli, CTX -> zosyn) DVT ppx: Heparin 5000 units subcu every 8 hours Diet: Regular Diet IV lines: Peripheral IVs Code status: DNI, resuscitation okay Patient plan of care was discussed with the attending physician, Dr. Joiner & senior resident Dr. Taj Hadley MD PGY-1 Attending Provider Attestation/Addendum I have seen and examined the patient. I was physically present for the jenkins portions of the services provided including history, physical exam, diagnosis, treatment plans and orders. I agree with assessment and plan of care as documented by residents. Patient seen and examined at bedside this morning. Appears comfortable and denies any new complaints. But are stable except for mild tachycardia. Lab results show improving WBC count, chemistry panel has been stable. Patient grew ESBL E. coli on both urine and blood culture and has been spiking fever last 1 being this morning at 102.2 ?F. Overnight temperature was 103.6. Infectious disease consulted, recommended changing antibiotic to Zosyn, appreciate recommendations. We will monitor her for further febrile episode, if continues to be febrile, we will change antibiotic to ertapenem. If remains afebrile for 24 hours, we will plan for PICC line and discharged with IV antibiotics. Patient and family at bedside updated about current status, management plan, they verbalized understanding and agree with the plan. Even though this this note was carefully revised there may still be minor errors in tree tapping laborer due to voice recognition software. Tyrone Joiner MD
--- NOTE | 2025-08-24 16:58 | PC.PT ---
Patient will be D/C from PT services 10/26 patient is back at her baseline/PLOF. Patient is safe to ambulate to the bathroom and in the halls with 1 family member or staff. RN made aware.
[2025-08-25] VITALS (12 sets, daily range): BP systolic 104–140; BP diastolic 74–89; PULSE 81–111; RESP 15–22; TEMP 36–36.7; O2SAT 95–100; BMI 29.7; BMI 29.9
[2025-08-25] MEDS: LEVOTHYROXINE SODIUM 25 MCG TABLET 75 MCG PO (05:13)
[2025-08-25] MEDS: HEPARIN SOD INJ 5000 UNIT/ML VIAL SC ×3 (05:13→21:36)
[2025-08-25] MEDS: PIPER/TAZO 3.375 GM PREMIX 3.375 GM/50 ML BAG IV ×3 (05:13→21:36)
[2025-08-25 06:11] LABS: Basophils # (Auto) 0.1 Thou/mm3 (0.0-0.2); Basophils % (Auto) 1 % (0-2.5); Eosinophils # (Auto) 0.1 Thou/mm3 (0.0-0.5); Eosinophils % (Auto) 1 % (0-10); Hematocrit 38.4 % (36.0-46.0); Hemoglobin 12.8 g/dL (12.0-16.0); Immature Granulocytes Auto 0.05 Thou/mm3 (0.00-0.00); Lymphocytes # (Auto) 1.3 Thou/mm3 (1.0-4.8); Lymphocytes % (Auto) 16 % (10-50); Mean Corpuscular HGB Conc 33.3 g/dl (31.0-37.0); Mean Corpuscular Hemoglobin 28.0 pg (25.0-35.0); Mean Corpuscular Volume 84 fL (80-100); Monocytes # (Auto) 0.6 Thou/mm3 (0.0-0.8); Monocytes % (Auto) 7 % (0-12); Neutrophils # (Auto) 6.0 Thou/mm3 (1.8-7.7); Neutrophils % (Auto) 74 % (37-80); Nucleated Red Blood Cell # 0.00 Thou/mm3 (0.00-0.00); Nucleated Red Blood Cell % 0 /100 WBC (0); Platelet Count 169 Thou/mm3 (140-440); RDW Standard Deviation 43.7 fL (36.4-46.3); Red Blood Count 4.57 Miln/mm3 (4.00-5.20); White Blood Count 8.1 Thou/mm3 (3.6-11.0)
[2025-08-25 06:42] LABS: Albumin, Serum 4.0 gm/dL (3.4-4.8); Alkaline Phosphatase 88 U/L (46-116); Anion Gap 10 (7-16); Aspartate Amino Transferase 27 U/L (0-34); BUN/Creatinine Ratio 6 Ratio (12-20); Bilirubin,Total 0.4 mg/dL (0.3-1.2); Blood Urea Nitrogen 6 mg/dL (9-23); Calcium 8.9 mg/dL (8.3-10.6); Calcium (Corrected) 8.9 mg/dL (8.5-10.1); Carbon Dioxide 23.8 mMol/L (20.0-31.0); Chloride 104 mMol/L (98-107); Creatinine (Component) 1.0 mg/dL (0.6-1.3); Estimated Creatinine Clearance 48.0 mL/min (>60); Glucose 99 mg/dL (74-106); Magnesium 1.7 mg/dL (1.6-2.6); Osmolality,Calculated 273 (275-295); Phosphorous 2.5 mg/dL (2.4-5.1); Potassium 3.1 mMol/L (3.4-5.1); Sodium 138 mMol/L (136-145); eGFR > 60 See Note
--- NOTE | 2025-08-25 08:09 | ESCONSULT_ITS ---
RE: AMY FELIX : 1960 DATE OF CONSULTATION: 08/24/2025 HISTORY OF PRESENT ILLNESS: Patient has a history of confusion, psoriatic arthritis and ankylosing spondylitis of the neck. She sees Dr. Serra and his nurse practitioner for her infusions. She gets Tremfya about every 8 weeks. PAST MEDICAL HISTORY: She is 1, para 2. PAST SURGICAL HISTORY: Had an appendectomy in 1973 and a cholecystectomy after that about 1980 or 1981. ALLERGIES: TETRACYCLINE. IMMUNIZATIONS: Last tetanus is not known she has to let rheum know if she is going to take a vaccine. Flu shot same thing. COVID vaccine no and pneumonia vaccine no. FAMILY HISTORY: Positive for diabetes and cancer in various relatives of different types. SOCIAL HISTORY: She lives at home with her , also her grandson and granddaughter. Granddaughter is currently studying nursing at [employer] and may be doing home care at the moment. So that may be a preferred option. Nonetheless, patient is not a candidate for p.o. antibiotics because of the positive blood cultures. Zosyn is ok but may be more often than can be done at home. PHYSICAL EXAMINATION: Her abdomen is benign. Extremities are unremarkable. Neuro exam is grossly normal with no back pain or tenderness. Patient is moving around in bed without difficulty. She seems to be slightly confused though. So she may go home as early as tomorrow if she is afebrile on ertapenem 1 g daily through 08/31/2025. There is no need for her to follow up with infectious disease. No need for repeat cultures. Her bacteremia is probably the source of her confusion. DT: 10:55:25 TT: 11:15:00 Ref: [id number] - TID: [id number] MTDD
[2025-08-25] MEDS: SENNA/DOCUSATE SOD 1 TAB TABLET PO (08:25)
[2025-08-25] MEDS: POTASSIUM CHLORIDE 10% 20 MEQ/15 ML UDC GT (08:54)
[2025-08-25] MEDS: POTASSIUM CHLORIDE 10% 20 MEQ/15 ML UDC 40 MEQ GT (10:19)
--- NOTE | 2025-08-25 12:03 | XR_ITS ---
Examination: Ultrasound-guided needle placement right basilic vein. Dual-lumen central line placement (PICC line). Fluoroscopy AP chest, portable, single view IV conscious sedation Exam date and time: August 25, 2025, 1345 hours INDICATIONS: Need for long-term intravenous antibiotic therapy for urinary tract infections A timeout was completed verifying correct patient, procedure, site, positioning Informed consent provided Technique: Under physician supervision, Versed 2 mg fentanyl 25 mcg administered intravenously for moderate sedation. Pulse oximetry, heart rate, blood pressure continuously monitored with an independent training observer present. The physician spent 15 minutes of [id number] sedation time with the patient The patient's site was prepped and draped in sterile fashion. Maximum Sterile Barrier Technique used including cap, mask, sterile gown, sterile gloves, and sterile full body drape. If ultrasound technique used: sterile gel and sterile probe covers. Hand Hygiene performed using proper scrub, soap and water, or alcohol-based hand rub. Ultrasound utilized to confirm patency of the right basilic vein Utilizing ultrasonographic guidance successful 21-gauge needle puncture into the right internal jugular vein Ultrasound images recorded and stored. 5 cc 1% lidocaine administered for local anesthetic. Successful micropuncture with a 21-gauge needle is performed. 0.18 wire guide is then introduced into the SVC under fluoroscopic guidance. Dual-lumen catheter dilator is then introduced, followed by the catheter in the SVC and proper position under fluoroscopic guidance. Successful aspiration of blood and flushing with heparinized saline is then performed in the 2 venous limbs. The catheter sutured in place. Findings: Under fluoroscopy, the tip of the catheter is in good position in the vena cava. Portable chest x-ray, post line placement is ordered. Estimated blood loss 3 cc The patient tolerated the procedure well and was in stable and satisfactory condition at completion of the procedure Impression: Successful ultrasound-guided needle placement right basilic vein Successful placement of dual lumen central line, percutaneous Fluoroscopy 0.3-minute radiation dose 5.12 mGy 1 spot fluoroscopic chest film. AP chest completion procedure demonstrates satisfactory position central line. May use central line.
--- NOTE | 2025-08-25 12:30 | PC.CC ---
Addendum entered by Jemal Perez RN 08/25/25 15:54: [facility] accepted and booked, soc pending discharge date. PICC line insertion is pending. Will need to send DC summary, instructions and PICC line report Original Note: initial HH referral send to agencies and infusion pharmacy. waiting for responses
[2025-08-25 13:24] LABS: Alanine Aminotransferase < 7 U/L (10-49); Albumin/Globulin Ratio 1.2 (1.2-2.2); Globulin 3.3 gm/dL (2.3-3.5); Total Protein 7.3 gm/dL (5.7-8.2)
--- NOTE | 2025-08-25 14:00 | PC.NURSE ---
Pt leaving for IR for PICC line insertion. Pt ambulated to [facility] with transfer nurse Lina BARNES.
[2025-08-25] MEDS: HEPARIN SOD LOCK SYR 100 UNIT/ML 500 UNIT STFIELD (14:15)
[2025-08-25] MEDS: LIDOCAINE INJ PF 1% 30 ML VIAL INFL (14:15)
[2025-08-25] MEDS: MIDAZOLAM INJ 1 MG/ML VIAL 2 ML 2 MG IVP (14:36)
[2025-08-25] MEDS: fentaNYL CIT INJ 50 mCg/ML AMP 2ML 25 MCG IVP (14:36)
--- NOTE | 2025-08-25 15:15 | PC.NURSE ---
@1515- Report received from Lina BARNES/laboratory technician. Pt to return to Tele unit soon. Patient with PICC to RT upper arm Pt received 2mg Versed and 25mg Fentanyl s/p procedure, pt drowsy, easy to arouse. Vitals: 111/74, 89, 14, 96% (RA) in stable condition.
--- NOTE | 2025-08-25 16:22 | ESPR_ITS ---
<Statement entered by Rubén Nash MD - 08/25/25 17:07> No acute overnight events. However, patient was noted to be febrile last night around 7 PM with temperature of 102 ?F. Given the antibiotics were changed yesterday and she had not received the full 24 hours of treatment, we will continue course with Zosyn and continue to monitor. PICC line ordered and placed PRN Ativan 0.5 mg as patient endorsing significant anxiety regarding placement of PICC line. Home health order placed for ertapenem administration through 08/31/2025. Anticipate discharge within next 24 to 48 hours. ----- Note reviewed and agree with care plan as documented. Please refer to the note below for further details. Plan discussed with attending physician Dr. Jeff Nash MD PGY-2 Internal Medicine Documentation for date of: 08/25/25 Subjective Subjective Interval history: No overnight events. Ms. Parker became febrile up to 102 at 1900 overnight but otherwise VSS. Final read for Blood cultures on 08/22 positive for ESBL E. Coli. Patient remains on zosyn tx. She endorses anxiety regarding her PICC line and a phobia of needles, which was confirmed by her son. She does not endorse any pain, shortness of breath, palpitations nor fever. Ms. Parker lives with her , granddaughter and grandson. Exam Vital Signs Temp Pulse Resp BP Pulse Ox O2 Del Method O2 Flow Rate 97.6 F 88 15 111/74 99 Room Air 3 08/25/25 14:53 08/25/25 15:00 08/25/25 15:00 08/25/25 15:00 08/25/25 15:00 08/25/25 15:00 08/25/25 14:40 Constitutional Constitutional: no acute distress Routine HEENT Exam Head: Present normocephalic and atraumatic Routine Neck Exam Neck: Present supple Routine Respiratory Exam Respiratory: Present chest non-tender, lungs clear, normal breath sounds and no resp distress Routine Cardiovascular Exam Cardiovascular: Present RRR Routine Psychiatric Exam Psychiatric: Present normal affect and normal thought process Objective Labs 08/26/25 05:45 08/26/25 05:45 Labs: Laboratory Results - last 24 hr 08/25/25 05:25 WBC 8.1 RBC 4.57 Hgb 12.8 Hct 38.4 MCV 84 MCH 28.0 MCHC 33.3 RDW Std Deviation 43.7 Plt Count 169 Neut % (Auto) 74 Lymph % (Auto) 16 [place] % (Auto) 7 Eos % (Auto) 1 Baso % (Auto) 1 Neut # (Auto) 6.0 Lymph # (Auto) 1.3 [place] # (Auto) 0.6 Eos # (Auto) 0.1 Baso # (Auto) 0.1 Immature Gran # (Auto) 0.05 H Absolute Nucleated RBC 0.00 Immature Gran % 1 H Nucleated RBC % 0 Sodium 138 Potassium 3.1 L D Chloride 104 Carbon Dioxide 23.8 Anion Gap 10 BUN 6 L Creatinine 1.0 Estim Creat Clear Calc 48.0 L eGFR > 60 BUN/Creatinine Ratio 6 L Glucose 99 Calculated Osmolality 273 L Calcium 8.9 Corrected Calcium 8.9 Phosphorus 2.5 Magnesium 1.7 Total Bilirubin 0.4 AST 27 ALT < 7 L Alkaline Phosphatase 88 Total Protein 7.3 Albumin 4.0 D Globulin 3.3 Albumin/Globulin Ratio 1.2 ABG Interpretation ABG results: 08/22/25 07:15 ABG pH 7.47 H ABG pCO2 31 L ABG pO2 111 H ABG HCO3 22 ABG O2 Saturation 99 H ABG Base Excess -1 Quality Measures Quality Measures VTE prophylaxis Advance care planning discussed with:: patient Assessment & Plan Problem List (1) UTI (urinary tract infection): Status: Acute (2) Sepsis: Status: Acute (3) Acute UTI: Status: Acute Assessment Current Active Medications: Generic Name Dose Route Start Last Admin Trade Name Freq PRN Reason Stop Dose Admin Acetaminophen 1,000 mg 08/22/25 07:18 08/24/25 19:25 Acetaminophen Lyn 325 Mg/10 Ml Udc PO 09/21/25 07:17 1,000 mg Q8H PRN Administration Fever > 100.4 Hydrocodone Bitart/Acetaminophen 1 tab 08/22/25 17:21 08/25/25 08:25 Hydrocodone/Apap 10/325 Tab PO 08/27/25 17:20 1 tab Q8HR PRN Administration Pain 4-10 Cyclobenzaprine HCl 5 mg 08/22/25 22:00 08/25/25 05:13 Cyclobenzaprine 5 Mg Tablet PO 09/21/25 21:59 5 mg TID ALEJANDRA Administration Gabapentin 100 mg 08/22/25 22:00 08/25/25 13:58 Gabapentin 100 Mg Capsule PO 09/21/25 21:59 Not Given TID ALEJANDRA Heparin Sodium (Porcine) 5,000 unit 08/22/25 22:00 08/25/25 05:13 Heparin Sod Inj 5000 Unit/Ml Vial SC 09/05/25 21:59 5,000 unit Q8HR ALEJANDRA Administration Piperacillin/Tazobactam/Dextrose 3.375 gm in 50 mls @ 12.5 mls/hr 08/24/25 14:00 08/25/25 05:13 Zosyn IV 08/31/25 07:51 12.5 mls/hr Q8HR ALEJANDRA Administration Protocol Levothyroxine Sodium 75 mcg 08/23/25 06:00 08/25/25 05:13 Levothyroxine Sodium 25 Mcg Tablet PO 09/22/25 05:59 75 mcg ACBR ALEJANDRA Administration Lorazepam 0.5 mg 08/25/25 09:58 08/25/25 13:50 Lorazepam 0.5 Mg Tablet PO 08/30/25 09:57 0.5 mg X1 PRN Administration Anxiety Meclizine HCl 25 mg 08/23/25 02:54 08/23/25 05:18 Meclizine Hcl 25 Mg Tablet PO 09/22/25 02:53 25 mg Q6H PRN Administration DIZZINESS Ondansetron HCl 4 mg 08/22/25 07:18 08/22/25 07:46 Ondansetron Inj 2 Mg/Ml Inj 2 Ml IVP 09/21/25 07:17 4 mg Q6HR PRN Administration NAUSEA OR VOMITING Sennosides 1 tab 08/23/25 09:00 08/25/25 08:25 Senna/Docusate Sod 1 Tab Tablet PO 09/22/25 08:59 1 tab QDAY ALEJANDRA Administration Protocol Sennosides 8.8 mg 08/24/25 09:55 Sennosides Syrup 8.8 Mg/5 Ml Udc PO 09/23/25 09:54 QDAY PRN CONSTIPATION Protocol Plan Ms. Parker is a 65-year-old female with past medical history of psoriatic arthritis, ankylosing spondylitis hypertension, hyperlipidemia, and hypothyroidism who was admitted for sepsis secondary to UTI. #Sepsis secondary To #Uncomplicated UTI #ESBL E.coli #Lactic acidosis, resolved SOFA score 1 due to a creatinine of 1.2. On arrival pulse 132, T 102.7 ?F, saturating 94% on room air, WBC 13, and lactic acid was 2.8 which resolved to 1.6. 08/22 CT abdomen pelvis showed moderate renal scarring, no hydronephrosis, multiple fluid distended small bowel loops. Urinalysis showed 468 RBCs, 216 WBCs 1+ bacteria. 08/24 1900 febrile to 102F, tachycardic to 108 Plan: - Per Dr. Vasquez: can switch to ertapenem if continues to spike fevers while on zosyn for ESBL E. coli - Will continue on Zosyn and reassess after 24h for the switch to ertapenem - Zosyn 08/24 - 08/31 - PICC line done today for anticipated discharge #Acute kidney injury, resolved - Avoid nephrotoxic agents - Renally dose medications #Hypothyroidism TSH 0.22, free T41.17 - Resumed home levothyroxine 75 mcg #Psoriatic arthritis #Ankylosing spondylitis Patient is on Tremfya twice a year Patient is also on Otezla Plan: - Resumed home gabapentin 100 mg p.o. 3 times daily - Resumed home [place] 10 every 8 hours as needed - Resumed home Flexeril 5 mg p.o. 3 times daily - Given patient's chronic opioid use, bowel regimen is in place #History of cervical cancer Patient mentioned that she has a history of cervical cancer Patient has a significant family history of bladder cancer and brain cancer in her sister Plan: - Patient will need to follow-up outpatient Hospital Maintenance: Disposition: Telemetry (Blood cx grew esbl ecoli, CTX -> zosyn) DVT ppx: Heparin 5000 units subcu every 8 hours Diet: Regular Diet IV lines: Peripheral IVs Code status: DNI, resuscitation okay ----- Plan discussed with attending physician Dr. Jeff Ely, PGY-1 Attending Provider Attestation/Addendum Kiran, Luz Aguilar, , attest that I was physically present for the jenkins portions of the service and evaluated the patient with the resident and I reviewed and discussed the case with the resident and agree with the resident's findings and plans of care as documented above Patient seen and evaluated this afternoon. Son and are at bedside. Patient states that she is very scared of needles and afraid of getting PICC line today. Will give ativan prior to PICC line placement. Home health ordered. Anticipate DC in next 24h once picc line is placed to continue home IV abx for ESBL E.coli UTI and bacteremia. All questions and concerns addressed at bedisde. Patient did have fever overnight, will continue to monitor closely. However, antibiotics were switched yesterday and may need another 24h to see improvement.
[2025-08-26] VITALS: BP 119/93; PULSE 100; PULSE 97; RESP 19; TEMP 36.8; O2SAT 98
--- NOTE | 2025-08-26 03:50 | PC.NURSE ---
[facility] downtime occurred on 08/26/25 from 0200 to 0350
[2025-08-26 04:00] VITALS: BP 98/73; PULSE 103; PULSE 85; RESP 22; TEMP 36.2; O2SAT 100
[2025-08-26] MEDS: HEPARIN SOD INJ 5000 UNIT/ML VIAL SC ×2 (05:40→14:30)
[2025-08-26] MEDS: PIPER/TAZO 3.375 GM PREMIX 3.375 GM/50 ML BAG IV (05:40)
[2025-08-26] MEDS: LEVOTHYROXINE SODIUM 25 MCG TABLET 75 MCG PO (05:40)
[2025-08-26 06:00] VITALS: BMI 28.3
[2025-08-26 06:36] LABS: Basophils # (Auto) 0.0 Thou/mm3 (0.0-0.2); Basophils % (Auto) 1 % (0-2.5); Eosinophils # (Auto) 0.1 Thou/mm3 (0.0-0.5); Eosinophils % (Auto) 2 % (0-10); Hematocrit 30.8 % (36.0-46.0); Hemoglobin 10.1 g/dL (12.0-16.0); Immature Granulocytes Auto 0.02 Thou/mm3 (0.00-0.00); Lymphocytes # (Auto) 1.9 Thou/mm3 (1.0-4.8); Lymphocytes % (Auto) 34 % (10-50); Mean Corpuscular HGB Conc 32.8 g/dl (31.0-37.0); Mean Corpuscular Hemoglobin 27.4 pg (25.0-35.0); Mean Corpuscular Volume 84 fL (80-100); Monocytes # (Auto) 0.7 Thou/mm3 (0.0-0.8); Monocytes % (Auto) 13 % (0-12); Neutrophils # (Auto) 2.8 Thou/mm3 (1.8-7.7); Neutrophils % (Auto) 50 % (37-80); Nucleated Red Blood Cell # 0.00 Thou/mm3 (0.00-0.00); Nucleated Red Blood Cell % 0 /100 WBC (0); Platelet Count 168 Thou/mm3 (140-440); RDW Standard Deviation 43.8 fL (36.4-46.3); Red Blood Count 3.69 Miln/mm3 (4.00-5.20); White Blood Count 5.5 Thou/mm3 (3.6-11.0)
[2025-08-26 07:23] LABS: Alanine Aminotransferase < 7 U/L (10-49); Albumin, Serum 3.2 gm/dL (3.4-4.8); Albumin/Globulin Ratio 1.3 (1.2-2.2); Alkaline Phosphatase 76 U/L (46-116); Anion Gap 9 (7-16); Aspartate Amino Transferase 28 U/L (0-34); BUN/Creatinine Ratio 10 Ratio (12-20); Bilirubin,Total 0.3 mg/dL (0.3-1.2); Blood Urea Nitrogen 9 mg/dL (9-23); Calcium 8.1 mg/dL (8.3-10.6); Calcium (Corrected) 8.7 mg/dL (8.5-10.1); Carbon Dioxide 24.7 mMol/L (20.0-31.0); Chloride 105 mMol/L (98-107); Creatinine (Component) 0.9 mg/dL (0.6-1.3); Estimated Creatinine Clearance 52.0 mL/min (>60); Globulin 2.5 gm/dL (2.3-3.5); Glucose 86 mg/dL (74-106); Magnesium 1.6 mg/dL (1.6-2.6); Osmolality,Calculated 275 (275-295); Phosphorous 2.4 mg/dL (2.4-5.1); Potassium 4.1 mMol/L (3.4-5.1); Sodium 139 mMol/L (136-145); Total Protein 5.7 gm/dL (5.7-8.2); eGFR > 60 See Note
[2025-08-26 08:00] VITALS: BP 117/75; PULSE 87; PULSE 92; RESP 21; TEMP 36; O2SAT 99
[2025-08-26] MEDS: SENNA/DOCUSATE SOD 1 TAB TABLET PO (09:40)
[2025-08-26 12:00] VITALS: BP 113/82; PULSE 86; PULSE 92; RESP 18; TEMP 36.2; O2SAT 97
--- NOTE | 2025-08-26 13:48 | ESDS_ITS ---
<Statement entered by Luz Aguilar DO - 08/27/25 07:52> I, Luz Aguilar DO, attest that I was physically present for the jenkins portions of the service and evaluated the patient with the resident and I reviewed and discussed the case with the resident and agree with the resident's findings and plans of care as documented above <Statement entered by Rubén Nash MD - 08/26/25 14:01> Note reviewed and agree with care plan as documented. Please refer to the note below for further details. Plan discussed with attending physician Dr. Jeff Nash MD PGY-2 Internal Medicine Planned Discharge Date 08/26/25 DS: Providers Provider Date of admission: 08/22/25 14:36 Primary care physician: Erica Pruitt PA-C Admitting Provider: Tyrone Joiner MD Attending Provider on Admission: Luz Aguliar DO Consults: 08/22/25 17:27 Referral Physical Therapy Routine Comment: Physician Instructions: 08/24/25 08:03 Consult to Infectious Diseases Routine Comment: ESBL bacteremia Consulting Provider: Ward Vasquez Attending Provider on DC: Blake Ely MD Discharging Provider: Blake Ely MD DS: Diagnosis Problem List Completed Was Problem List Reviewed/Reconciled?: Yes Hospital Course Hospital Course Hospital course: #Sepsis secondary to #Complicated ESBL E.Coli UTI #ESBL E.coli Bacteremia #Lactic acidosis- Resolved #Acute Kidney Injury- Resolved #Hypothyroidism #Psoriatic arthritis #Ankylosing spondylitis #History of cervical cancer Ms. Parker is a 65-year-old female with past medical history of psoriatic arthritis on guselkumad infusions, ankylosing spondylitis of the neck, hypertension, hyperlipidemia, and hypothyroidism presented to the ED on 08/22/25 complaining of fever, chills and lower abdominal pain with dysuria. Urine analysis obtained at the time of admission was positive for UTI (positive for leukocyte esterase and urine WBC was 216). Pt was started on ceftriaxone on 08/22. Urine culture obtained grew ESBL E. coli with multi drug resistance. Pt continued to have spike in fevers during hospitalization and blood culture also grew ESBL E.coli and pt was started on Zosyn on 08/24. She has been afebrile and asymptomatic on zosyn therapy; PICC line insertion was done on 08/25/2025. Given Ms. Parker's clinical improvement on antibiotics and return to baseline, she is to finish her course of antibiotics(switched to ertapenem, to finish 08/31/2025) with assistance from Home Health Nursing for abx administration and eventual PICC line removal. Patient was also educated on holding her Tremfya doses until completion of antibiotic course as well as contact precautions given her ESBL E. coli. Strict return precautions for fevers, chills, shortness of breath and other alarming symptoms were provided and she was safely discharged home in PM of 08/26/2025 Primary hospitalist team consulted ID for oral options for this pt's multi drug resistance ESBL E.coli UTI and Bacteremia. PMH: As above, patient mentions that distant history of cervical cancer. PSH: Appendectomy 1973, cholecystectomy in 1983 SH: [id number] smoking history, quit 27 years ago. Lives with and grandson. FH: Pt has extensive history positive for multiple cancers in her sisters Allergies: Tetracyclines Home Meds: guselkumad infusions, Wegovy, [place], Flexeril, meclizine, gabapentin, levothyroxine omeprazole, amlodipine Status at Discharge Cognitive/behavioral status at discharge: Baseline Time Spent with Patient Time attestation: Total time spent providing and/or coordinating discharge services: 60 minutes Time spent: Greater than 30 minutes Home Health Home Health Referral Orders: 08/25/25 09:57 Home Health Referral Routine Reason For Exam: esbl e.coli bacteremia Home-Bound The patient must either because of illness or injury, need the aid of supportive devices such as crutches, canes, wheelchairs, and walkers; the use of special transportation; or the assistance of another person in order to leave their place of residence; OR have a condition such that leaving his or her home is medically contraindicated. In addition, the patient also meets the following criteria: patient is normally unable to leave the home and leaving home requires considerable taxing effort. Addendum to Home Health Certification Practitioner's Certification: I certify that the patient has been under my care in the hospital and the care of attending physician (see below). We had a kewi-bz-kwme encounter on (see date below). My clinical findings indicate that the patient is home bound per the above criteria and the Home Health Services noted in these orders are medically necessary. The primary reason for the hcgf-[id number] encounter is related to the fact that the patient requires home health services. Date Certifying Dfqz-[id number] Physician Encounter: 08/22/25 Physician's Name who will Assume Oversight for Services: Erica Pruitt Physician's Phone No.who will Assume Oversight for Service: NURSE INFORMATICIST - Community Resources: No PT to Evaluate: No PT to evaluate and provide a treatmnet plan to increase patient's mobility and strength. Wound Care: No IV Therapy: Yes IV Medication: ertapenem IV Dose: 1g IV Frequency: daily IV Stop Date: 08/31/25 Discontinue PICC Line Once Treatment Complete: Yes RN Safety Evaluation: Yes RN to evaluate and create a plan of care that will produce positive outcomes. Palliative Treatment: No Palliative treatment and evaluate the need for hospice. Home Health Aide - Personal Care: Yes Home Health Aide to assist with any ADL's. Exam Vital Signs Temp Pulse Resp BP Pulse Ox O2 Del Method O2 Flow Rate 96.8 F 92 21 H 117/75 99 Room Air 3 08/26/25 08:00 08/26/25 08:00 08/26/25 08:00 08/26/25 08:00 08/26/25 08:00 08/26/25 08:00 08/25/25 14:40 Constitutional Constitutional: no acute distress Routine HEENT Exam Head: Present normocephalic and atraumatic Routine Neck Exam Neck: Present supple and full ROM Routine Respiratory Exam Respiratory: Present chest non-tender, lungs clear and normal breath sounds Routine Cardiovascular Exam Cardiovascular: Present RRR Additional findings Additional findings: Significant kyphosis and restricted spinal range of motion, otherwise normal exam Discharge Plan Plan Patient Disposition: Home w/HOME HEALTH Patient condition on transfer: Stable Care Plan Goals: ? Continue taking all other home medications as prescribed ? You're being discharged with a PICC line for antibiotic administration: ? Continue IV antibiotics (ertapenem) until 08/31 as instructed ? Hold your Tremfya until you finish your course of antibiotics ? Follow-up with PCP within 1-2 weeks of discharge ? Recommend obtaining referral for urology from PCP ? If you do not have a PCP, you can follow-up at the [facility] (you can call [phone] to make an appointment) ? Return to ED if symptoms worsen or recur Prescriptions/Referrals Prescriptions/Med Rec: New ertapenem 1 gram recon soln 1 g IV QDAY 6 Days Continued Acetaminophen ER * (TYLENOL ER *) 650 MG TABLET.ER 650 mg PO Q8HR PRN (Reason: PAIN) Qty: 30 0RF hydrocodone-acetaminophen 10-325 mg tablet 1 tab PO TID PRN (Reason: pain) cyclobenzaprine 5 mg tablet 5 mg PO TID PRN (Reason: muscle spasm) omeprazole 40 mg capsule,delayed release(DR/EC) 40 mg PO DAILY Rx Instructions: 30 minutes before breakfast meclizine 25 mg tablet 25 mg PO [id number] PRN (Reason: dizziness) amlodipine 5 mg tablet 5 mg PO DAILY albuterol sulfate 90 mcg/actuation HFA aerosol inhaler 2 puff INHALATION TID PRN (Reason: shortness of breath or wheezing) lidocaine 5 % adhesive patch,medicated 1 patch TOPICAL Q24H PRN (Reason: pain (scale score 7-10)) Linzess 145 mcg capsule 145 mcg PO DAILY Patient Comments: TAKE 1 TABLET BY MOUTH ONCE A DAY (IN THE MORNING) FOR CONSTIPATION Wegovy 1.7 mg/0.75 mL pen injector 1.7 mg SUBCUT Q7D Patient Comments: INJECT 1.7 MG SUBCUTANEOUSLY ONCE WEEKLY Rx Instructions: Saturdays levothyroxine 75 mcg tablet 75 mcg PO DAILY Patient Comments: TAKE 1 TABLET BY MOUTH DAILY BEFORE BREAKFAST. ondansetron HCl 4 mg tablet 4 mg PO [id number] PRN (Reason: nausea and vomiting) Patient Comments: TAKE 1 TAB BY MOUTH EVERY 6-8 HOURS NEEDED VOMITING fluticasone propionate 44 mcg/actuation HFA aerosol inhaler 2 inh inhalation BID PRN (Reason: shortness of breath or wheezing) Rx Instructions: administer with spacer Otezla 30 mg tablet 30 mg PO DAILY Held Tremfya 100 mg/mL syringe 100 mg SUBCUT .Q4 weeks Hold Instructions: Hold until finished course of antibiotics Rx Instructions: Sundays 1 dose every 4 weeks Discontinued ibuprofen 600 MG tablet 600 mg PO Q6HR PRN (Reason: PAIN) Qty: 30 0RF Referrals: Erica Pruitt PA-C [Primary Care Provider, Family Practice] Patient/Caregiver Discharge Instructions Education Materials: Understanding Urinary Tract ..., When to Use Antibiotics Print Language: Burkinan Stand Alone Forms: Sushma Award Info., Patient Portal Info Letter Discharge Order Discharge Orders: Discharge (Routine); Ordered 08/26/25 Ordered By: Rubén Vang Riowen Quality Discharge Quality Measures none MD Attestestation MD Attestation Plan discussed with patient and Dr. Aguilar. Blake Ely MD PGY-1
--- NOTE | 2025-08-26 15:12 | ESPR_ITS ---
Subjective Subjective Interval history: no change in recs. fevers better on effective rx Exam Vital Signs Temp Pulse Resp BP Pulse Ox O2 Del Method O2 Flow Rate 97.2 F 86 18 113/82 97 Room Air 3 08/26/25 12:00 08/26/25 12:00 08/26/25 12:00 08/26/25 12:00 08/26/25 12:00 08/26/25 12:00 08/25/25 14:40 Narrative Exam limited eval today Objective - Internal Medicine Labs 08/26/25 05:45 08/26/25 05:45 Labs: Laboratory Results - last 24 hr 08/26/25 05:45 WBC 5.5 RBC 3.69 L Hgb 10.1 L D Hct 30.8 L MCV 84 MCH 27.4 MCHC 32.8 RDW Std Deviation 43.8 Plt Count 168 Neut % (Auto) 50 Lymph % (Auto) 34 [place] % (Auto) 13 H Eos % (Auto) 2 Baso % (Auto) 1 Neut # (Auto) 2.8 Lymph # (Auto) 1.9 [place] # (Auto) 0.7 Eos # (Auto) 0.1 Baso # (Auto) 0.0 Immature Gran # (Auto) 0.02 H Absolute Nucleated RBC 0.00 Immature Gran % 0 Nucleated RBC % 0 Sodium 139 Potassium 4.1 D Chloride 105 Carbon Dioxide 24.7 Anion Gap 9 BUN 9 Creatinine 0.9 Estim Creat Clear Calc 52.0 L eGFR > 60 BUN/Creatinine Ratio 10 L Glucose 86 Calculated Osmolality 275 Calcium 8.1 L Corrected Calcium 8.7 Phosphorus 2.4 Magnesium 1.6 Total Bilirubin 0.3 AST 28 ALT < 7 L Alkaline Phosphatase 76 Total Protein 5.7 Albumin 3.2 L D Globulin 2.5 Albumin/Globulin Ratio 1.3 ABG Interpretation ABG results: 08/22/25 07:15 ABG pH 7.47 H ABG pCO2 31 L ABG pO2 111 H ABG HCO3 22 ABG O2 Saturation 99 H ABG Base Excess -1 Assessment & Plan A&P Narrative bacteremia, esbl with r to all effective po regimens other problems as noted. favor iv rx with ertapenem 1 gm iv daily thru 08/31 zosyn ok as inpt. for now, but is problematic if she goes home or to a nh. for rx thru 08/31 grand daughter works with home care so that may be a preferred option for her will see again prn. re ordered hep c as that should be routine at her age at least once. I cannot see her in clinic so f/u should be with primary provider. Time Spent With Patient Time: Total time spent is greater than 50% in coordination of care (as documented) at patient's floor/unit and/or counseling patient:
[2025-08-26 15:16] VITALS: BP 116/74; PULSE 88; RESP 18; TEMP 36.3; O2SAT 98
--- NOTE | 2025-08-26 18:51 | PC.CM ---
Ryan discharged today and will be followed by [facility] and ÁNGEL. I sent discharge paperwork and PICC line info. [facility] will open patient tomorrow 08/27. [facility] delivered the ABX today.
== END 2025-08-26 15:25 | disposition home health service (06) | DRG 872 ==
LOC: SERX 09:02 → SERHOLD 14:58 → S2NX 18:10
PROVIDERS: Admitting Provider Student in an Organized Health Care Education/Training Program; Emergency Provider Emergency Medicine; PCP Physician Assistant; Visit Provider Internal Medicine
DX: A41.51 Sepsis due to Escherichia coli [E. coli] (principal); N39.0 Urinary tract infection, site not specified; N17.9 Acute kidney failure, unspecified; Z16.12 Extended spectrum beta lactamase (ESBL) resistance; Z16.24 Resistance to multiple antibiotics; E87.20 Acidosis, unspecified; I10 Essential (primary) hypertension; K21.9 Gastro-esophageal reflux disease without esophagitis; Z87.891 Personal history of nicotine dependence; R32 Unspecified urinary incontinence; L40.50 Arthropathic psoriasis, unspecified; M45.9 Ankylosing spondylitis of unspecified sites in spine; E78.5 Hyperlipidemia, unspecified; E03.9 Hypothyroidism, unspecified; Z85.41 Personal history of malignant neoplasm of cervix uteri; B96.20 Unspecified Escherichia coli [E. coli] as the cause of diseases classified elsewhere; Z79.85 Long-term (current) use of injectable non-insulin antidiabetic drugs; Z79.890 Hormone replacement therapy; Z79.891 Long term (current) use of opiate analgesic; Z79.899 Other long term (current) drug therapy; Z87.440 Personal history of urinary (tract) infections; Z90.49 Acquired absence of other specified parts of digestive tract; Z88.1 Allergy status to other antibiotic agents
CPT/HCPCS: 36415; 36600; 51701; 71045; 74176; 80053; 80061; 81001; 82803; 83605; 83615; 83690; 83735; 83880; 84100; 84145; 84439; 84443; 84484; 85025; 85610; 85730; 86803; 87040; 87077; 87086; 87186; 93005; 96361; 96365; 96375; 97161; 99285; A4649; C1751; C1894; J0696; J1335; J1642; J1644; J2250; J2405; J2470; J2543; J3010; J3490; J7030; J7050; A9270